=== PATIENT | male | born 1955 | race Caucasian/White ===

== ENCOUNTER 2020-05-15 17:38 | Inpatient (IN) | payer MEDICARE, SELFPAY ==
[~2020-05-15] VITALS: Ht 190.5 cm; Wt 103.8 kg
[2020-05-15] MEDS ORDERED: ASPI325EC PO (20:17)
[2020-05-15] MEDS ORDERED: FAMO20 PO (20:17)
[2020-05-15] MEDS ORDERED: METF500 PO (20:18)
[2020-05-15] MEDS ORDERED: Prinivil10 MG PO (20:18)
[2020-05-15] MEDS ORDERED: GABA800 PO (20:18)
[2020-05-15] MEDS ORDERED: Crestor20 MG PO (20:20)
[2020-05-15] MEDS ORDERED: TRAM50 PO (20:20)
[2020-05-15] MEDS ORDERED: METPRE4 PO (20:20)
[2020-05-15 20:51] LABS: BASOPHILS ABSOLUTE AUTO 0.09 K/mm3 (0.00-0.23); BASOPHILS PERCENT AUTO 1 % (0-2); EOSINOPHILS ABSOLUTE AUTO 0.43 K/mm3 (0.00-0.68); EOSINOPHILS PERCENT AUTO 2 % (0-6); IMMATURE GRAN PERCENT AUTO 1 % (0-1); LYMPHOCYTES ABSOLUTE AUTO 2.31 K/mm3 (0.84-5.20); LYMPHOCYTES PERCENT AUTO 12 % (21-46); MONOCYTES ABSOLUTE AUTO 1.25 K/mm3 (0.16-1.47); MONOCYTES PERCENT AUTO 7 % (4-13); Mean Corpuscular HGB 19.9 pg (26.0-34.0); Mean Corpuscular HGB Conc 28.6 g/dL (31.5-36.5); Mean Corpuscular Volume 70 fL (80-100); Mean Platelet Volume 9.2 fL (9.1-12.4); NEUTROPHILS ABSOLUTE AUTO 14.76 K/mm3 (1.96-9.15); NEUTROPHILS PERCENT AUTO 77 % (41-73); NRBC ABSOLUTE 0.05 K/mm3 (0.00-0.02); NRBC Auto 0.3 /100 WBC (0.0-0.2); Platelet Count 350 K/mm3 (150-400); RDW Coefficient Variation 23.3 % (11.7-14.2); RDW Standard Deviation 56.7 fL (35.1-46.3); Red Blood Cell Count 4.03 M/mm3 (4.30-5.90); White Blood Cell Count 19.04 K/mm3 (4.00-11.30)
[2020-05-15 21:06] LABS: International Normalized Ratio 0.98; Prothrombin Time Results 10.5 Sec (9.7-11.5)
[2020-05-15 21:07] LABS: Alanine Aminotransfer (ALT/SGP 22 U/L (12-78); Albumin, Blood 3.3 g/dL (3.4-5.0); Albumin/Globulin Ratio 0.9 (0.8-1.8); Alk Phos 105 U/L (50-136); Anion Gap 4 mmol/L (6-16); Aspartate Aminotrans (AST/SGOT 14 U/L (12-37); Bilirubin, Total 0.4 mg/dL (0.1-1.0); Blood Urea Nitrogen 16 mg/dL (8-24); Bun/Creatinine Ratio 21.5 (12.0-20.0); CO2, Blood 26 mmol/L (21-32); Calcium, Blood 9.1 mg/dL (8.5-10.1); Chloride, Blood 107 mmol/L (98-108); Creatinine, Blood 0.75 mg/dL (0.60-1.20); Globulin, Blood 3.6 g/dL (2.2-4.0); Glomerular Filtration Rate >60 (60-); Glucose, Blood 105 mg/dL (70-99); Potassium, Blood 3.8 mmol/L (3.5-5.5); Sodium, Blood 137 mmol/L (136-145); Total Protein, Blood 6.9 g/dL (6.4-8.2); Troponin I <0.015 ng/mL (0.000-0.040)
[2020-05-16 04:35] LABS: Hematocrit 28.3 % (37.0-53.0); Hemoglobin 8.1 g/dL (13.5-17.5); Mean Corpuscular HGB Conc 28.6 g/dL (31.5-36.5); Mean Corpuscular Volume 70 fL (80-100); Mean Platelet Volume 9.3 fL (9.1-12.4); NRBC ABSOLUTE 0.03 K/mm3 (0.00-0.02); NRBC Auto 0.2 /100 WBC (0.0-0.2); Platelet Count 329 K/mm3 (150-400); RDW Coefficient Variation 23.3 % (11.7-14.2); RDW Standard Deviation 57.2 fL (35.1-46.3); Red Blood Cell Count 4.05 M/mm3 (4.30-5.90); White Blood Cell Count 14.48 K/mm3 (4.00-11.30)
--- NOTE | 2020-05-16 18:38 | NUR ---
ADMIT PT ARRIVED TO ICU ROOM 11 AT 1720 VIA BED WITH BARREL LEVELER STAFF AT BEDSIDE. PT IS AWAKE, ALERT, AND ORIENTED, BUT DROWSEY AT THIS TIME. PT IS COMPLAINING OF BACK PAIN AND DISCOMFORT IN BED. EDUCATED PT AND SPOUSE ABOUT IMPORTANCE OF REMAINING SUPINE AND NOT BENDING AT THE HIPS. PT CONTINUES TO MOVES LEGS DESPITE INSTRUCTIONS AND EDUCATION OF BLEEDING RISK. PT WITH BILATERAL GROIN FEMORAL ARTERY ACCESS SITE WITH DRESSING C/D/I. NO HEMATOMA OR BRUISING NOTED. PT WITH LEFT RADIAL ACCESS SITE WITH TR BAND IN PLACE. SITE IS SOFT NONTENDER, NO HEMATOMA. IV'S SALINE LOCKED INITIALLY. PT RESTARTED ON HEPARIN GTT AT 17 UNITS/KG/HR PER DR SOLO. PT USED URINAL TO VOID WITH ASSISTANCE. PT BILATERAL FEET ARE DUSKY AND MOTTLED, WITH GANGRENOUS TOES TO RIGHT FOOT. UNABLE TO DOPPLER PULSES TO BLE'S. DR SOLO AWARE. SEE PHOTOS IN CHART OF WOUNDS. PLAN IS FOR DR SOLO TO TAKE PT BACK TO BARREL LEVELER IN THE AM. WILL CONTINUE TO MONITOR AND REPORT OFF TO ONCOMING RN.
--- NOTE | 2020-05-16 19:40 | NUR ---
TR BAND REMOVAL RN REMOVED 2ML FROM TR BAND - PT VSS, NO SIGNS OF BLEEDING/SWELLING. WILL CONTINUE TO MONITOR.
--- NOTE | 2020-05-16 22:48 | NUR ---
PT UPDATE PT HR WAS NOTED TO BE IN 150'S - RN'S TO SEE PT STATUS DURING THIS TIME. PT WAS ATTEMPTING TO GET OUT OF BED TO USE THE RESTROOM. PT FAILED TO CALL FOR HELP OR ASK NURSES FOR HELP THEY WALK BY. PT SEEMED TO BE DISORIENTED. WEAK, AND NONCOMPLIANT. RN'S ASSISTED PT TO ATTEMPT TO USE BEDSIDE COMMODE, BUT PT INCREASINGLY WEAK AND APPEARED IF HE WAS GOING TO FAINT. RN AND TECH ASSISTED PT BACK IN BED - PT VERY LETHARGIC. ALL ACCESS SITES WERE C/D/I, NO SIGNS OF BLEEDING OR SWELLING IN SITES - WILL CONTINUE TO MONITOR CLOSELY. BED ALARM ON, REORIENTED PT. VSS.
[2020-05-17 03:52] LABS: BASOPHILS ABSOLUTE AUTO 0.06 K/mm3 (0.00-0.23); BASOPHILS PERCENT AUTO 0 % (0-2); EOSINOPHILS ABSOLUTE AUTO 0.03 K/mm3 (0.00-0.68); EOSINOPHILS PERCENT AUTO 0 % (0-6); Hematocrit 27.5 % (37.0-53.0); Hemoglobin 7.9 g/dL (13.5-17.5); IMMATURE GRAN ABSOLUTE AUTO 0.13 K/mm3 (0.00-0.10); IMMATURE GRAN PERCENT AUTO 1 % (0-1); LYMPHOCYTES ABSOLUTE AUTO 0.97 K/mm3 (0.84-5.20); LYMPHOCYTES PERCENT AUTO 6 % (21-46); MONOCYTES ABSOLUTE AUTO 1.12 K/mm3 (0.16-1.47); MONOCYTES PERCENT AUTO 6 % (4-13); Mean Corpuscular HGB 19.8 pg (26.0-34.0); Mean Corpuscular HGB Conc 28.7 g/dL (31.5-36.5); Mean Corpuscular Volume 69 fL (80-100); Mean Platelet Volume 9.6 fL (9.1-12.4); NEUTROPHILS ABSOLUTE AUTO 15.31 K/mm3 (1.96-9.15); NEUTROPHILS PERCENT AUTO 87 % (41-73); NRBC ABSOLUTE 0.03 K/mm3 (0.00-0.02); NRBC Auto 0.2 /100 WBC (0.0-0.2); Platelet Count 328 K/mm3 (150-400); RDW Coefficient Variation 22.9 % (11.7-14.2); RDW Standard Deviation 55.1 fL (35.1-46.3); Red Blood Cell Count 3.99 M/mm3 (4.30-5.90); White Blood Cell Count 17.62 K/mm3 (4.00-11.30)
[2020-05-17 04:13] LABS: Alanine Aminotransfer (ALT/SGP 23 U/L (12-78); Albumin, Blood 2.8 g/dL (3.4-5.0); Albumin/Globulin Ratio 0.8 (0.8-1.8); Alk Phos 104 U/L (50-136); Anion Gap 9 mmol/L (6-16); Aspartate Aminotrans (AST/SGOT 35 U/L (12-37); Bilirubin, Total 0.7 mg/dL (0.1-1.0); Blood Urea Nitrogen 12 mg/dL (8-24); Bun/Creatinine Ratio 17.3 (12.0-20.0); CO2, Blood 25 mmol/L (21-32); Calcium, Blood 8.7 mg/dL (8.5-10.1); Chloride, Blood 105 mmol/L (98-108); Creatinine, Blood 0.69 mg/dL (0.60-1.20); Globulin, Blood 3.4 g/dL (2.2-4.0); Glomerular Filtration Rate >60 (60-); Glucose, Blood 127 mg/dL (70-99); Magnesium, Blood 1.7 mg/dL (1.6-2.4); Sodium, Blood 139 mmol/L (136-145); Total Protein, Blood 6.2 g/dL (6.4-8.2)
--- NOTE | 2020-05-17 05:30 | NUR ---
SHIFT SUMMARY PT RESTED THROUGH MOST OF NIGHT. ALERT AND ORIENTED - ABLE TO MAKE NEEDS KNOWN. PT LETHARGIC BUT EASILY AROUSABLE. SEE PREVIOUS NOTES. SATS >90% ON RA. TELE NSR/SINUS TACH. PT GLASER - SHANNON CARE PERFORMED, DRAINING TO GRAVITY. PT HAD ONE LARGE INCONTINENT BM. NO SIGNS OF BLEEDING. HEP GTT CONTINUES TO RUN AT SAME RATE OF 17U/KG/HR. BILAT GROIN SITES AND L RADIAL SITE ARE C/D/I, NO SIGNS OF SWELLING OR BLEEDING. VSS - BP AND HR HAVE BEEN UP AND DOWN. WILL CONTINUE TO MONITOR. CALL LIGHT WIHTIN REACH, BED IN LOWEST POSITION. BED ALARM ON. WILL CONTINUE TO MONITOR.
--- NOTE | 2020-05-17 08:02 | NUR ---
AM NOTE PT RESTING IN BED, RESPONDING TO VERBAL STIMULI. PT ORIENTED x4; KNOW MONTH/YEAR/PRESIDENT; UNSURE IF DAY/DATE. PT CALM AND COOPERATIVE WITH CARE. PT STATES HE WANTS TO GO HOME. PT DENIES PAIN, CHEST PAIN, SOB, DIZZINESS AND NAUSEA. RESTING IN BED. LS DIM T/O SPO2 >90% ON RA. RESP EVEN AND UNLABORED. ST WITH PAC'S PER STRIP. PT ABD SOFT,NONTENDER, MOLD DISTENTION. BS NORMOACTIVE x4 QUAD. RIGTH GROIN SITE HAS SMALL AMOUNT OF BLOOD NOTED, NO BRUISING OR BLEEDING NOTED. LEFT GROIN SITE DRESS C/D/I; SHADOWING/BRUISNG NOTED. WOUNDS TO RIGHT FOOT NOTED, GREEN IN COLORATION; OPEN TO AIR. UNABLE TO FIND PULSES. VSS. NO OTHER ACUTE CHANGES. WILL CONTINUE TO MONITOR.
--- NOTE | 2020-05-17 11:24 | NUR ---
SPOKE WITH DR SOLO, PLANS FOR ADDITIONAL REVASC TODAT 05/17/20; WILL CONTINUE TO HOLD PT NPO. NOTIFIED DR DUDLEY; PLANS TO SEE PATIEINT TOMORROW 05/18/20 ONCE REVASC IS COMPLETED. WILL CONTINUE TO MONITOR.
--- NOTE | 2020-05-17 15:45 | NUR ---
PT TAKEN TO DENTAL SURGERY DOCTOR.
--- NOTE | 2020-05-17 17:57 | NUR ---
PT BACK TO ROOM AT 1741; RESPONDING TO VERBAL STIMULI, QUICKLY FALLING BACK TO SLEEP. MEPTUNE DRESSING NOTED TO RIGHT INNER ANKLE; SMALL AMOUNT OF BLEEDING MARKED. RETARTING HEPARIN. DEV CONTINUE TO MONITOR.
--- NOTE | 2020-05-17 18:11 | NUR ---
SHIFT SUMMARY NO ACUTE CHANGES FROM PREVIOUS NOTED. VSS. WILL CONTINUE TO MONITOR UNITL REPORT GIVEN TO ONCOMING RN.
--- NOTE | 2020-05-18 00:19 | NUR ---
DUE TO MEDITECH DOWNTIME - SEE CRITICAL CARE TRIFTYLER
[2020-05-18 05:14] LABS: BASOPHILS ABSOLUTE AUTO 0.05 K/mm3 (0.00-0.23); BASOPHILS PERCENT AUTO 0 % (0-2); EOSINOPHILS ABSOLUTE AUTO 0.25 K/mm3 (0.00-0.68); EOSINOPHILS PERCENT AUTO 2 % (0-6); Hematocrit 24.9 % (37.0-53.0); IMMATURE GRAN ABSOLUTE AUTO 0.08 K/mm3 (0.00-0.10); IMMATURE GRAN PERCENT AUTO 1 % (0-1); LYMPHOCYTES PERCENT AUTO 10 % (21-46); MONOCYTES ABSOLUTE AUTO 0.95 K/mm3 (0.16-1.47); MONOCYTES PERCENT AUTO 7 % (4-13); Mean Corpuscular HGB 19.7 pg (26.0-34.0); Mean Corpuscular HGB Conc 28.1 g/dL (31.5-36.5); Mean Corpuscular Volume 70 fL (80-100); Mean Platelet Volume 10.2 fL (9.1-12.4); NEUTROPHILS ABSOLUTE AUTO 11.89 K/mm3 (1.96-9.15); NEUTROPHILS PERCENT AUTO 81 % (41-73); Platelet Count 283 K/mm3 (150-400); RDW Standard Deviation 55.8 fL (35.1-46.3); Red Blood Cell Count 3.56 M/mm3 (4.30-5.90); White Blood Cell Count 14.62 K/mm3 (4.00-11.30)
[2020-05-18 05:40] LABS: Alanine Aminotransfer (ALT/SGP 20 U/L (12-78); Albumin, Blood 2.3 g/dL (3.4-5.0); Albumin/Globulin Ratio 0.7 (0.8-1.8); Alk Phos 89 U/L (50-136); Anion Gap 8 mmol/L (6-16); Aspartate Aminotrans (AST/SGOT 36 U/L (12-37); Bilirubin, Total 0.7 mg/dL (0.1-1.0); Blood Urea Nitrogen 13 mg/dL (8-24); Bun/Creatinine Ratio 18.5 (12.0-20.0); CO2, Blood 25 mmol/L (21-32); Calcium, Blood 8.4 mg/dL (8.5-10.1); Chloride, Blood 104 mmol/L (98-108); Globulin, Blood 3.5 g/dL (2.2-4.0); Glomerular Filtration Rate >60 (60-); Glucose, Blood 92 mg/dL (70-99); Magnesium, Blood 1.8 mg/dL (1.6-2.4); Phosphorus, Blood 2.8 mg/dL (2.5-4.9); Potassium, Blood 3.9 mmol/L (3.5-5.5); Sodium, Blood 137 mmol/L (136-145); Total Protein, Blood 5.8 g/dL (6.4-8.2)
[2020-05-18 05:41] LABS: C-REACTIVE PROTEIN, EXT RANGE >19.000 mg/dL (0.000-0.300)
--- NOTE | 2020-05-18 05:44 | NUR ---
SHIFT SUMMARY PT RESTED WELL THROUGH THE NIGHT. ALERT AND ORIENTED - ABLE TO MAKE NEEDS KNOWN. ROOM AIR - SATS >90%. TELE NSR/SINUS TACH. GLASER IN PLACE - DRAINING TO GRAVITY, SHANNON CARE PERFORMED. NO BM. PT READY TO GO HOME WHEN ABLE. PAIN X1. ALL SITES LOOK C/D/I. NO SIGNS OF OBVIOUS BLEEDING/SWELLING. CALL LIGHT WITHIN REACH, BED IN LOWEST POSITIN. WILL CONTINUE TO MONITOR.
[2020-05-18 08:24] LABS: Hematocrit 26.1 % (37.0-53.0); Hemoglobin 7.5 g/dL (13.5-17.5); Mean Corpuscular HGB 19.8 pg (26.0-34.0); Mean Corpuscular HGB Conc 28.7 g/dL (31.5-36.5); Mean Corpuscular Volume 69 fL (80-100); Mean Platelet Volume 9.5 fL (9.1-12.4); NRBC ABSOLUTE 0.02 K/mm3 (0.00-0.02); NRBC Auto 0.1 /100 WBC (0.0-0.2); Platelet Count 288 K/mm3 (150-400); RDW Coefficient Variation 22.9 % (11.7-14.2); RDW Standard Deviation 55.2 fL (35.1-46.3); Red Blood Cell Count 3.79 M/mm3 (4.30-5.90); White Blood Cell Count 15.93 K/mm3 (4.00-11.30)
[2020-05-18] MEDS ORDERED: ACET325 PO (13:34)
[2020-05-18] MEDS ORDERED: ASCO500 PO (13:34)
[2020-05-18] MEDS ORDERED: CEPH500 PO (13:35)
[2020-05-18] MEDS ORDERED: FERSU300 PO (13:35)
[2020-05-18] MEDS ORDERED: HUMALOG KW100 UNIT/1 SC (13:36)
[2020-05-18] MEDS ORDERED: ONDA4ODT MM (13:36)
[2020-05-18] MEDS ORDERED: Nicoderm Cq1 EAC1 TOP (13:36)
[2020-05-18] MEDS ORDERED: XARELTO20 MG PO (13:37)
[2020-05-18] MEDS ORDERED: ACIDOPHILUS1 EAC1 PO (13:37)
[2020-05-18] MEDS ORDERED: CLOP75 PO (14:48)
--- NOTE | 2020-05-18 15:34 | NUR ---
DISCHARGE INSTRUCTIONS GONE OVER WITH PT AND SPOUSE. INSTRUCTED ON NEW MEDICATIONS AND SAFETY MONITORING. ALL QUESTIONS ANSWERED. INSTRUCTED PT AND FAMILY ON FOLLOW UP VISITS. BELONGINGS GATHERED AND GIVEN TO PT. PT WAS ESCORTED OUT BY RN VIA WHEELCHAIR TO AWAITING RIDE.
== END 2020-05-18 14:55 | disposition home or self-care (01) | DRG 854 ==
LOC: ER 17:38 → ICUW 21:24 → ERHOLD 21:24 → ICUW 05-16 15:50
PROVIDERS: Emergency Medicine; Family Medicine; ADMIT Internal Medicine
PROC: B41D1ZZ Fluoroscopy of Aorta and Bilateral Lower Extremity Arteries using Low Osmolar Contrast (ICD-10-PCS; principal; 2020-05-16)
PROC: 047 Lower Arteries, Dilation (ICD-10-PCS; 2020-05-16)
PROC: 04FC3ZZ Fragmentation of Right Common Iliac Artery, Percutaneous Approach (ICD-10-PCS; 2020-05-16)
PROC: 04FH3ZZ Fragmentation of Right External Iliac Artery, Percutaneous Approach (ICD-10-PCS; 2020-05-16)
PROC: 03F Upper Arteries, Fragmentation (ICD-10-PCS; 2020-05-16)
PROC: 027W3DZ Dilation of Thoracic Aorta, Descending with Intraluminal Device, Percutaneous Approach (ICD-10-PCS; 2020-05-16)
DX: A41.9 Sepsis, unspecified organism (principal); E11.52 Type 2 diabetes mellitus with diabetic peripheral angiopathy with gangrene; D62 Acute posthemorrhagic anemia; L97.515 Non-pressure chronic ulcer of other part of right foot with muscle involvement without evidence of necrosis; L97.415 Non-pressure chronic ulcer of right heel and midfoot with muscle involvement without evidence of necrosis; M86.9 Osteomyelitis, unspecified; E11.42 Type 2 diabetes mellitus with diabetic polyneuropathy; G35 Multiple sclerosis; E78.5 Hyperlipidemia, unspecified; I10 Essential (primary) hypertension; F17.210 Nicotine dependence, cigarettes, uncomplicated; Z79.82 Long term (current) use of aspirin; M35.3 Polymyalgia rheumatica; D64.9 Anemia, unspecified; Z79.84 Long term (current) use of oral hypoglycemic drugs; D50.9 Iron deficiency anemia, unspecified; E11.621 Type 2 diabetes mellitus with foot ulcer
CPT/HCPCS: 36140; 36415; 36430; 71045; 73630; 75625; 75716; 76937; 80053; 82947; 83036; 83605; 83735; 84100; 84484; 85025; 85027; 85347; 85610; 85651; 85730; 86140; 86850; 86900; 86901; 86923; 87040; 93005; 93010; 93926; 96365; 96375; 96376; 99152; 99153; 99285-25; A9270; C1714; C1725; C1757; C1769; C1874; C1876; C1887; C1894; C2623; C9765; G0008; J0360; J0690; J1644; J2060; J2250; J2704; J3010; J7030; J7040; J7050; J7509; P9016; Q2038; Q9967

== ENCOUNTER 2020-05-30 10:49 | Inpatient (IN) | payer MEDICARE, SELFPAY, OTHER ==
[~2020-05-30] VITALS: Ht 190.5 cm; Wt 97.8 kg
[~2020-05-30 10:49] MED LIST: ACET325 PO; ACIDOPHILUS1 EAC1 PO; ASCO500 PO; ASPI325EC PO; CEPH500 PO; CLOP75 PO; Crestor20 MG PO; FAMO20 PO; FERSU300 PO; GABA800 PO; HUMALOG KW100 UNIT/1 SC; METF500 PO; METPRE4 PO; Nicoderm Cq1 EAC1 TOP; ONDA4ODT MM; Prinivil10 MG PO; TRAM50 PO; XARELTO20 MG PO
[2020-05-30] MEDS ORDERED: NORCO 7.5-3251 EAC1 PO (11:37)
[2020-05-30 12:07] LABS: BASOPHILS ABSOLUTE AUTO 0.04 K/mm3 (0.00-0.23); BASOPHILS PERCENT AUTO 0 % (0-2); EOSINOPHILS ABSOLUTE AUTO 0.02 K/mm3 (0.00-0.68); EOSINOPHILS PERCENT AUTO 0 % (0-6); Hematocrit 21.5 % (37.0-53.0); Hemoglobin 6.3 g/dL (13.5-17.5); IMMATURE GRAN ABSOLUTE AUTO 0.97 K/mm3 (0.00-0.10); IMMATURE GRAN PERCENT AUTO 4 % (0-1); LYMPHOCYTES ABSOLUTE AUTO 0.71 K/mm3 (0.84-5.20); LYMPHOCYTES PERCENT AUTO 3 % (21-46); MONOCYTES ABSOLUTE AUTO 0.96 K/mm3 (0.16-1.47); MONOCYTES PERCENT AUTO 4 % (4-13); Mean Corpuscular HGB 21.1 pg (26.0-34.0); Mean Corpuscular HGB Conc 29.3 g/dL (31.5-36.5); Mean Corpuscular Volume 72 fL (80-100); NEUTROPHILS ABSOLUTE AUTO 19.87 K/mm3 (1.96-9.15); NEUTROPHILS PERCENT AUTO 88 % (41-73); NRBC Auto 0.4 /100 WBC (0.0-0.2); Platelet Count 518 K/mm3 (150-400); RDW Coefficient Variation 24.5 % (11.7-14.2); Red Blood Cell Count 2.99 M/mm3 (4.30-5.90); White Blood Cell Count 22.57 K/mm3 (4.00-11.30)
[2020-05-30 12:15] LABS: International Normalized Ratio 1.15; Prothrombin Time Results 12.2 Sec (9.7-11.5)
[2020-05-30 12:23] LABS: Albumin, Blood 2.1 g/dL (3.4-5.0); Albumin/Globulin Ratio 0.5 (0.8-1.8); Bilirubin, Total 0.4 mg/dL (0.1-1.0); Bun/Creatinine Ratio 11.8 (12.0-20.0); Calcium, Blood 8.8 mg/dL (8.5-10.1); Creatinine, Blood 1.53 mg/dL (0.60-1.20); Globulin, Blood 3.9 g/dL (2.2-4.0); Potassium, Blood 4.5 mmol/L (3.5-5.5)
[2020-05-30 13:07] LABS: Influenza A, PCR NEGATIVE (NEGATIVE); Influenza B, PCR NEGATIVE (NEGATIVE); Resp Syncytial Virus, PCR NEGATIVE (NEGATIVE); SARS-Cov-2 (COVID-19) PCR, MMC NEGATIVE (NEGATIVE)
[2020-05-30] MEDS ORDERED: Florastor250 MG PO (15:34)
--- NOTE | 2020-05-30 17:49 | NUR ---
Advanced Directive completed for pt. is on board with pt's choices. If no hope for meaningful recovery, pt wants no heroic measures. AD notarized by me and several copies made. One placed in pt's chart. is tearful, but responded well to gentle patient financial counselor and encouragement. Pt says he's tired of hurting. I will remain available.
--- NOTE | 2020-05-30 18:24 | NUR ---
PT ARRIVED ON UNIT AT 1505... PT'S VS STABLE UPON ARRIVAL. PT WAS PULLED OVER TO THE BED WITH A SLIDER SHEET. PT'S RIGHT FOOT HAS MULTIPLE WOUNDS THAT HAVE A VERY FOUL ODOR, THE WOUNDS WERE CLEANED AND PICTURES IN THE THE CHART. DR. HOANG WAS CONSULTED FOR PODIATRY. THE ONLY PULSE ABLE TO BE FOUND WITH DOPPLER ON THE RIGHT LEG WAS THE POSTERIOR TIBIAL. PULSES WERE ABSENT TO THE LEFT LEG. PT'S LEFT LEG IS COOL TO THE TOUCH, PER THE PT HE IS UNABLE TO MOVE IT ON HIS OWN. PT DENIES PAIN TO HIS BLE AT THIS TIME. PT HAS 1 UNIT OF PRBCs RUNNING UPON ARRIVAL AND AN ORDER TO HANG ONE MORE FOR A TOTAL OF 2 UNITS. PT IS A&Ox4 AT THIS TIME. PT IS IN NSR, BP STABLE. PT IS ON 2L NC TO KEEP O2 SATS >90%, PT IS ON RA AT HOME PER PT AND HIS . BT PRESENT AND HYPOACTIVE. PT C/O OF N/V DUE TO THE "SMELL OF MY FOOT." DR. HOANG AT THE BEDSIDE, INFORMED THE PT THAT HE WILL NEED TO HAVE A BKA D/T POSSIBLE GAS GANEGRENE IN THE RIGHT FOOT. PT AND ARE VERY UPSET AT THIS NEWS. ASKED FOR AT STAT CONSULT WITH ORTHO'S DR. MCKINNEY. THIS WAS CALLED TO HIS ANSWERING SERVICE. PT IS ALSO TO BE TAKEN TO THE GEOPHYSICAL PROSPECTOR TOMORROW WITH DR. SOLO FOR THE ACUTE LEFT LEG ISCHEMIA. PT HAS ALSO HAD A POSITIVE GUIAC, DR. BLACK WAS CONSULTED, THIS RN CALLED DR. BLACK, HE OKAY'D THE PT TO BE ON A CLEAR LIQUID DIET. WILL CONTINUE TO MONITOR.
[2020-05-30 19:21] LABS: BASOPHILS ABSOLUTE AUTO 0.03 K/mm3 (0.00-0.23); BASOPHILS PERCENT AUTO 0 % (0-2); EOSINOPHILS ABSOLUTE AUTO 0.01 K/mm3 (0.00-0.68); EOSINOPHILS PERCENT AUTO 0 % (0-6); Hematocrit 22.5 % (37.0-53.0); IMMATURE GRAN ABSOLUTE AUTO 0.43 K/mm3 (0.00-0.10); IMMATURE GRAN PERCENT AUTO 2 % (0-1); LYMPHOCYTES ABSOLUTE AUTO 1.12 K/mm3 (0.84-5.20); LYMPHOCYTES PERCENT AUTO 6 % (21-46); MONOCYTES ABSOLUTE AUTO 1.15 K/mm3 (0.16-1.47); MONOCYTES PERCENT AUTO 6 % (4-13); Mean Corpuscular HGB 22.9 pg (26.0-34.0); Mean Corpuscular HGB Conc 31.1 g/dL (31.5-36.5); Mean Corpuscular Volume 74 fL (80-100); Mean Platelet Volume 8.8 fL (9.1-12.4); NEUTROPHILS ABSOLUTE AUTO 17.61 K/mm3 (1.96-9.15); NEUTROPHILS PERCENT AUTO 87 % (41-73); NRBC ABSOLUTE 0.08 K/mm3 (0.00-0.02); NRBC Auto 0.4 /100 WBC (0.0-0.2); Platelet Count 416 K/mm3 (150-400); RDW Coefficient Variation 25.5 % (11.7-14.2); RDW Standard Deviation 65.9 fL (35.1-46.3); Red Blood Cell Count 3.06 M/mm3 (4.30-5.90); White Blood Cell Count 20.35 K/mm3 (4.00-11.30)
--- NOTE | 2020-05-30 20:00 | NUR ---
ASSUMED CARE OF PT AT 1915. REPORT RECEIVED AT BEDSIDE. DR LAGOS IN ROOM REQUESTED STAT CT OF RIGHT LEG. PT TO CT AND RETURNED. NOTIFIED DR LAGOS THAT CT WAS COMPLETED. PT BACK IN ROOM. ALERT AND ORIENTED. ANXIOUS ABOUT POSSIBLE SURGERY FOR RIGHT LOWER EXTREMITY. PT ON PROTONIX DRIP SECONDARY TO ANEMIA WITH POSITIVE GUIAC. OF NOTE: PT DOES TAKE IRON AT HOME. PT HAS RECEIVED TWO UNITS PRBC'S INITIATED IN ER. CBC DRAWN FROM POWERGLIDE, AND SENT TO LAB. WILL REVIEW CHART AND PLAN OF CARE FOR THIS PT.
[2020-05-30 21:24] LABS: Hematocrit 22.5 % (37.0-53.0); Hemoglobin 7.1 g/dL (13.5-17.5)
--- NOTE | 2020-05-30 23:11 | NUR ---
PT RECEIVING LACTATED RINGER BOLUS PER SARAI, HOSPITALIST FOR LOWER BLOOD PRESSURES. WAS TO DO FOLLOW UP H/H AT MIDNIGHT IN REFERENCE TO PT RECEIVING BLOOD PRODUCTS. OR TEAM HAS ARRIVED TO ROOM, AND DR LAGOS COMES TO SPEAK WITH PT ABOUT AMPUTATION OF RIGHT LOWER LEG. PROPOSED BKA. PT NEEDS REASSURANCE. PT VOICES CONCERN THAT HE IS TO RECEIVE MORE BLOOD PRODUCTS IN OR FOR GI BLEED. DISCUSSED WITH PT WHERE HIS H/H IS CURRENTLY. PT LEAVES ICU TO OR WITH OR TEAM. WILL AWAIT PT'S RETURN.
--- NOTE | 2020-05-30 23:44 | NUR ---
05/30/20 3887 Anjelica Ramon PT RECIEVED 2 UNITS OF PRBC IN THE OR VIA BLOOD WARMER. BLOOD VERIFIED BY MYSELF AND . VS MONITORED BY DR. CHAMPION.
--- NOTE | 2020-05-31 01:30 | NUR ---
PT RETURNS TO ROOM POST RIGHT BKA. DR LAGOS TO ROOM. LILLIAN DRAIN TO RIGHT BKA WITH SEROUSAINGEOUR DRAINAGE. STUMP SOCK OVER BKA SITE. PT STATES THAT HE IS HAVING QUITE A BIT OF POST OP PAIN. WILL MEDICATE PER PRN EMAR.
[2020-05-31 06:04] LABS: Hematocrit 24.1 % (37.0-53.0); Hemoglobin 7.6 g/dL (13.5-17.5); Mean Corpuscular HGB 23.9 pg (26.0-34.0); Mean Corpuscular HGB Conc 31.5 g/dL (31.5-36.5); Mean Corpuscular Volume 76 fL (80-100); Mean Platelet Volume 9.2 fL (9.1-12.4); NRBC ABSOLUTE 0.11 K/mm3 (0.00-0.02); NRBC Auto 0.8 /100 WBC (0.0-0.2); Platelet Count 376 K/mm3 (150-400); RDW Coefficient Variation 24.5 % (11.7-14.2); RDW Standard Deviation 66.9 fL (35.1-46.3); Red Blood Cell Count 3.18 M/mm3 (4.30-5.90); White Blood Cell Count 14.51 K/mm3 (4.00-11.30)
[2020-05-31 06:22] LABS: Anion Gap 8 mmol/L (6-16); Blood Urea Nitrogen 13 mg/dL (8-24); Bun/Creatinine Ratio 11.9 (12.0-20.0); CO2, Blood 27 mmol/L (21-32); Calcium, Blood 8.2 mg/dL (8.5-10.1); Chloride, Blood 101 mmol/L (98-108); Creatinine, Blood 1.09 mg/dL (0.60-1.20); Glomerular Filtration Rate >60 (60-); Glucose, Blood 108 mg/dL (70-99); Potassium, Blood 3.6 mmol/L (3.5-5.5); Sodium, Blood 136 mmol/L (136-145)
--- NOTE | 2020-05-31 06:30 | NUR ---
PT HAS BEEN MEDICATED WITH DILAUDID 1 MG SEE PRN EMAR FOR DOSAGING. SPOKE WITH DR IZQUIERDO THIS AM AND RECEIVED ORDER FOR FENTANYL FOR BREAKTHROUGH PAIN. FIRST DOSE OF 50 MCG FENTANYL GIVEN. PENDING RESULTS. WILL CONTINUE TO MONITOR PT, AND WILL REPORT OFF TO ONCOMING RN.
--- NOTE | 2020-05-31 08:26 | NUR ---
AM NOTE... ASSUMED CARE OF PT AT 0715. PT IS A&Ox4 AND IS S/P RIGHT BKA, PT IS HAVING 10/10 SHARP STABBING PAIN TO THE SURGICAL SITE. PT IS ALSO C/O OF TOTAL NUMBNESS TO HIS LEFT LEG. NO PULSES WERE FOUND USING DOPPLER TO THE LEFT LEG. THE PT'S LEFT LEG IS BEING FLOATED ON PILLOWS TO KEEP THE HEEL OFF OF THE BED, MEPILEX DRESSING INTACT TO THE LEFT HEEL AND LEFT POSTERIOR CALF. THE PT'S RIGHT BKA DRESSING IS C/D/I WITH A LILLIAN DRAIN. LILLIAN DRAIN HAS A LARGE CLOT IN THE BULB, THIS WAS CHANGED OUT FOR A NEW ONE. PT'S VS STABLE BUT ON THE SOFT SIDE WITH SYSTOLICS IN THE 80'S-110'S, PT STATES HE NORMALLY IS HYPERTENSIVE AT HOME. PT IS IN SR W/OCC PACs IN THE 70'S. HE IS ON 2L NC TO KEEP HIS O2 SATS>90%. L/S CLEAR T/O DIM IN THE BASES. BT PRESENT BUT VERY HYPOACTIVE, ABD IS SOFT BUT TENDER TO PALP. PT HAS PROTONIX GTT RUNNING PER ORDERS. PT IS NPO FOR PROCEDURE WITH DR. SOLO TODAY. CALL LIGHT IN REACH WILL CONTINUE TO MONITOR.
--- NOTE | 2020-05-31 11:30 | NUR ---
PT UPDATE... DR. KIRAN AT THE BEDSIDE FOR ASSESSMENT. PT IS SUPPOSED TO GO TO THE DRY GOODS INSPECTOR WITH DR. SOLO AT SOME POINT TODAY, CONCERNS OF USING ANTICOAGULANTS WITH THE PT'S POSSIBLE GI BLEED WERE BROUGHT UP. DR. VELEZ WAS CALLED AND NOTIFIED OF PT GOING TO THE DRY GOODS INSPECTOR, HE VERBALIZED HIS UNDERSTANDING AND SAID THAT HE PLANNED ON DOING AN EGD WITH THE PT LATER THIS EVENING IF POSSIBLE. DR. SOLO WAS CALLED AND UPDATED ON THE GI PROVIDER'S PLAN WITH THIS PT, VERBALIZED HIS UNDERSTANDING THAT THE PT HAS A POSSIBLE GI BLEED AND STATED THAT HE WAS NOT CONCERNED WITH THE "SMALL AMOUNT OF HEPARIN" THAT WOULD BE USED DURING THE PROCEDURE. WILL CONTINUE TO MONITOR.
--- NOTE | 2020-05-31 16:39 | NUR ---
History, Chart, Medications and Allergies reviewed before start of procedure.Lungs clear T/O to Auscultation. Patient confirms NPO status and agrees with scheduled surgery. PT REPORT FROM SABA MCKEON RN. TRANSFERRED PT FROM ICU A PCU STATUS PT TO [facility] FOR EGD. DR ARREDONDO SPOKE TO Delta REGARDING NEED FOR ANESTHESIA. HE SAID AFTER REVIEWING CHART NURSE SEDATION WAS ADEQUATE. DR ARREOLA IN [place]. AT BEDSIDE.
--- NOTE | 2020-05-31 16:41 | NUR ---
PT UPDATE... PT LEFT FOR DAY SURGERY AT 1630 FOR HIS EGD. PT'S VS STABLE AT THE TIME OF DEPARTURE.
[2020-05-31 16:51] LABS: BASOPHILS ABSOLUTE AUTO 0.03 K/mm3 (0.00-0.23); BASOPHILS PERCENT AUTO 0 % (0-2); EOSINOPHILS ABSOLUTE AUTO 0.04 K/mm3 (0.00-0.68); EOSINOPHILS PERCENT AUTO 0 % (0-6); Hematocrit 23.9 % (37.0-53.0); Hemoglobin 7.5 g/dL (13.5-17.5); IMMATURE GRAN ABSOLUTE AUTO 0.33 K/mm3 (0.00-0.10); IMMATURE GRAN PERCENT AUTO 2 % (0-1); LYMPHOCYTES ABSOLUTE AUTO 1.14 K/mm3 (0.84-5.20); LYMPHOCYTES PERCENT AUTO 8 % (21-46); MONOCYTES ABSOLUTE AUTO 0.78 K/mm3 (0.16-1.47); MONOCYTES PERCENT AUTO 6 % (4-13); Mean Corpuscular HGB Conc 31.4 g/dL (31.5-36.5); Mean Corpuscular Volume 77 fL (80-100); Mean Platelet Volume 9.1 fL (9.1-12.4); NEUTROPHILS ABSOLUTE AUTO 11.65 K/mm3 (1.96-9.15); NEUTROPHILS PERCENT AUTO 83 % (41-73); NRBC ABSOLUTE 0.05 K/mm3 (0.00-0.02); NRBC Auto 0.4 /100 WBC (0.0-0.2); Platelet Count 363 K/mm3 (150-400); RDW Coefficient Variation 24.9 % (11.7-14.2); RDW Standard Deviation 67.7 fL (35.1-46.3); Red Blood Cell Count 3.12 M/mm3 (4.30-5.90); White Blood Cell Count 13.97 K/mm3 (4.00-11.30)
--- NOTE | 2020-05-31 17:10 | NUR ---
05/31/20 1710 Merari Steiner History, Chart, Medications and Allergies reviewed before start of procedure. Patient confirms NPO status and agrees with scheduled surgery. PATIENT DETERMINED TO BE ASA APPROPRIATE FOR PROPOFOL SEDATION PRIOR TO START OF PROCEDURE BY . 3-LEAD EKG REVIEWED WITH PHYSICIAN PRIOR TO START OF PROCEDURE. MONITOR INTACT WITH CONTINUOUS PULSE OXIMETRY AND INTERMITTENT BP.Bite Block Placed
--- NOTE | 2020-05-31 18:10 | NUR ---
Spiritual care note: I met with Dante this morning. He was very upset about this hospitalization from begining. He feels betrayed by the PA who "gave us hope" the day before admission. He says he doesn't understand "what happened." He complained about proceedure being scheduled/canceled/rescheduled today. He is also winter upset about his amputation and admits he is worred about his other leg. He appeared close to tears, but pulled himself back. I provided emotional affirmation and theraputic listening to good effect. Much of what he stated was appropriate and reasonable. He will benefit from continued aids counselor and clear communication from clinicians. I will remain available.
--- NOTE | 2020-05-31 18:40 | NUR ---
SHIFT SUMMARY... PT RETURNED FROM DAY SURGERY S/P EDG AT 1740, PT'S EDG WAS CLEAR PER DR. VELEZ. A CONSULT WAS PLACED FOR DR. MCLEOD ENT FOR OROPHARNYX BLEEDING. PT'S VS ON RETURN WERE STABLE, PT IS C/O OF 10/10 PAIN D/T THE MOVEMENT OF GOING TO DAY SURGERY. PT WAS MEDICATED FOR PAIN PER EMAR. PT'S AT THE BEDSIDE UPDATED ON NEXT STEP AND PLAN OF CARE, PT IS TO BE NPO AFTER MIDNIGHT FOR HIS FINISH CLEANER PROCEDURE TO THE LEFT LEG. PT HAS LR RUNNING AT 150MLS/HR PER ORDERS. LILLIAN DRAIN HAS MINIMAL DRAINAGE AT THIS TIME, BULB IS COMPRESSED, NO CLOTS NOTED IN THE TUBING. SURGICAL DRESSING IS C/D/I. CALL LIGHT IN REACH WILL CONTINUE TO MONITOR UNTIL REPORT IS GIVEN TO ONCOMING RN
--- NOTE | 2020-05-31 20:00 | NUR ---
ASSUMED CARE OF PT AT 1915. REPORT RECEIVED. PT PRESENTS IN BED. ALERT AND SOMEWHAT ORIENTED. DRESSING ON RIGHT BKA SITE CDI. STUMP ELEVATED ON PILLOW. PT MADE AWARE THAT DIESEL PILE HAMMER OPERATOR HAS BEEN ORDERED AND WOULD BE BROUGHT IN ROOM ONCE AVAILABLE FROM PHARMACY. PT ABLE TO MOVE ABOUT IN BED ON HIS OWN. VOIDS Q.S. WILL REVIEW CHART AND PLAN OF CARE FOR THIS PT.
[2020-06-01 05:25] LABS: BASOPHILS ABSOLUTE AUTO 0.03 K/mm3 (0.00-0.23); BASOPHILS PERCENT AUTO 0 % (0-2); EOSINOPHILS PERCENT AUTO 0 % (0-6); Hematocrit 23.4 % (37.0-53.0); Hemoglobin 7.2 g/dL (13.5-17.5); IMMATURE GRAN ABSOLUTE AUTO 0.26 K/mm3 (0.00-0.10); IMMATURE GRAN PERCENT AUTO 2 % (0-1); LYMPHOCYTES ABSOLUTE AUTO 1.05 K/mm3 (0.84-5.20); LYMPHOCYTES PERCENT AUTO 8 % (21-46); MONOCYTES ABSOLUTE AUTO 0.77 K/mm3 (0.16-1.47); MONOCYTES PERCENT AUTO 6 % (4-13); Mean Corpuscular HGB 23.9 pg (26.0-34.0); Mean Corpuscular HGB Conc 30.8 g/dL (31.5-36.5); Mean Corpuscular Volume 78 fL (80-100); Mean Platelet Volume 8.7 fL (9.1-12.4); NEUTROPHILS ABSOLUTE AUTO 11.33 K/mm3 (1.96-9.15); NEUTROPHILS PERCENT AUTO 84 % (41-73); NRBC ABSOLUTE 0.02 K/mm3 (0.00-0.02); NRBC Auto 0.1 /100 WBC (0.0-0.2); Platelet Count 360 K/mm3 (150-400); RDW Coefficient Variation 25.5 % (11.7-14.2); RDW Standard Deviation 70.3 fL (35.1-46.3); Red Blood Cell Count 3.01 M/mm3 (4.30-5.90); White Blood Cell Count 13.44 K/mm3 (4.00-11.30)
[2020-06-01 05:46] LABS: Anion Gap 7 mmol/L (6-16); Blood Urea Nitrogen 6 mg/dL (8-24); Bun/Creatinine Ratio 7.4 (12.0-20.0); CO2, Blood 28 mmol/L (21-32); Calcium, Blood 8.2 mg/dL (8.5-10.1); Chloride, Blood 100 mmol/L (98-108); Creatinine, Blood 0.81 mg/dL (0.60-1.20); Glomerular Filtration Rate >60 (60-); Glucose, Blood 100 mg/dL (70-99); Potassium, Blood 3.2 mmol/L (3.5-5.5); Sodium, Blood 135 mmol/L (136-145)
--- NOTE | 2020-06-01 06:26 | NUR ---
PT HAS STATED BETTER RELIEF WITH AIR DRIER MACHINE OPERATOR. PT DOES DEMONSTRATE THAT HE IS FORGETFUL AND NEEDS REMINDERS AND CUES AT TIMES. PT HAS NO S/S BLEEDING. NO COMPLAINTS OF N/V. VSS. HAVE USED 1-2 LITERS OXYGEN PER NASAL CANNULA DURING NIGHT. NO S/S ADVERSE REACTIONS TO ANTIBIOTIC THERAPY. WILL CONTINUE TO MONITOR PT, AND WILL REPORT OFF TO ONCOMING RN.
[2020-06-01 18:22] LABS: Hematocrit 24.6 % (37.0-53.0); Hemoglobin 7.5 g/dL (13.5-17.5)
--- NOTE | 2020-06-01 18:38 | NUR ---
SHIFT SUMMARY: PT TO AND FROM DESIGN ENGINEER THIS AFTERNOON FOR ATTEMPT OF REVASCULARIZATION. PT FOUND TO BE OCCLUDED AND REVASC WAS UNSUCCESSFUL. PT RETURNS TO ROOM WITH BILATERAL GROIN ACCESS SITES AND RT RADIAL SITE. SITES WNL AT THIS TIME. PT CONTINUES A&O T/OUT SHIFT, RESP EVEN AND UNLABORED, SINUS RHYTHM/TACH ON MONITOR. MICROBIOLOGY QUALITY CONTROL TECHNICIAN PUMP CONTINUES, PT REPORTS PAIN BETTER CONTROLLED WITH PUMP. WILL CONTINUE TO MONITOR AND TREAT UNTIL CHANGE OF SHIFT.
--- NOTE | 2020-06-01 18:56 | NUR ---
ATTEMPTED TO REMOVE 2 CC AIR FROM TR BAND. BLEEDING OCCURRED. 2 CC AIR REPLACED. TOTAL OF 12 CC AIR REMAINS IN TR BAND.
--- NOTE | 2020-06-01 23:12 | NUR ---
TRANSFER TO PCU PT TRANSFERED TO PCU, BP 102/72. HR 97. O2 SATS >95% ON 1 LPM VIA NC. TR BAND IN PLACE AND FULLY DEFLATED. GROIN SITES ARE C/D/I, SCANT BLOOD, NO DISCOLORATION, SWELLING OR FIRMNESS. PT IS DOING WELL.
--- NOTE | 2020-06-02 05:09 | NUR ---
SHIFT SUMMARY RECEIVED REPORT FROM MAHENDRA BOYCE. PATIENT TRANSFERRED FROM ICU TO PCU @2300 . AGREE WITH ASSESSMENT. REASSESSED LLE FOR PULSE, MARKED PULSE FOUND WITH DOPPLER. LLE WARM AND PINK, PATIENT STATES NO FEELING. REMOVED TR BAND @0130 FROM RIGHT RADIAL SITE, CLEAR DRESSING AND SPLINT IN PLACE, DRIED BLOOD, NO BLEEDING SINCE TR BAND REMOVED, RIGHT HAND WARM, PINK, WITH GOOD CIRCULATION. RIGHT AND LEFT FEMORAL SITES UNCHANGED, NO BLEEDING. PATIENT USES URINAL. NPO SINCE MIDNIGHT. VERIFIED MACHINE OPERATOR ASSISTANT PUMP WITH MARY BOYCE. VSS, NO ACUTE CHANGES. 02 SATS >90% ON RA-1L VIA NC. CALL LIGHT IN REACH.
[2020-06-02 05:27] LABS: Hematocrit 22.7 % (37.0-53.0); Hemoglobin 7.1 g/dL (13.5-17.5); Mean Corpuscular HGB 24.4 pg (26.0-34.0); Mean Corpuscular HGB Conc 31.3 g/dL (31.5-36.5); Mean Corpuscular Volume 78 fL (80-100); NRBC ABSOLUTE 0.02 K/mm3 (0.00-0.02); NRBC Auto 0.1 /100 WBC (0.0-0.2); Platelet Count 316 K/mm3 (150-400); RDW Coefficient Variation 26.4 % (11.7-14.2); RDW Standard Deviation 74.4 fL (35.1-46.3); Red Blood Cell Count 2.91 M/mm3 (4.30-5.90); White Blood Cell Count 14.43 K/mm3 (4.00-11.30)
[2020-06-02 05:44] LABS: Anion Gap 9 mmol/L (6-16); Blood Urea Nitrogen 4 mg/dL (8-24); Bun/Creatinine Ratio 5.5 (12.0-20.0); CO2, Blood 26 mmol/L (21-32); Calcium, Blood 8.2 mg/dL (8.5-10.1); Chloride, Blood 100 mmol/L (98-108); Creatinine, Blood 0.73 mg/dL (0.60-1.20); Glomerular Filtration Rate >60 (60-); Glucose, Blood 100 mg/dL (70-99); Potassium, Blood 3.6 mmol/L (3.5-5.5); Sodium, Blood 135 mmol/L (136-145)
--- NOTE | 2020-06-02 18:19 | NUR ---
SHIFT SUMMARY NO ACUTE EVENTS THIS SHIFT, VSS. BILAT GROIN SITES AND R. RADIAL SITES SHOWED NO NEW DISCHARGE THIS SHIFT, ARMBOARD IN PLACE ON R. FOREARM. PATIENT ALERT AND ORIENTED. ON ROOM AIR, TOLERATING WELL. IV ABX CONTINUED. DRESSINGS IN PLACE ON LLE. TRANSITIONED FROM DILAUDID ADVISOR ADVOCATE ANGEL CO FOUNDER TO PO DILAUDID. DR. MCKINNEY CAME TO DISCUSS SITUATION REGARDING LLE WITH PATIENT AT BEDSIDE. DR. MCKINNEY EXPLAINED THAT TRANSFER FOR ADDITIONAL VASCULAR INTERVENTION WAS THE RECOMMENDATION AT THIS TIME, PATIENT STATED HE WOULD DISCUSS WITH HIS LATER THIS SHIFT. WHEN WAS AT BEDSIDE THEY COMMUNICATED TO THIS RN AGREEMENT TO MOVE FORWARD WITH TRANSFER FOR FURTHER VASCULAR SURGERY, DR. KIRAN, DR. MCKINNEY AND DR. SOLO NOTIFIED. DR. SOLO COMMUNICATED TO THIS RN HE WOULD BE INVOLVED WITH COORDINATING COBRA TRANSFER, DR. KIRAN NOTIFIED.
[2020-06-03 04:52] LABS: BASOPHILS ABSOLUTE AUTO 0.03 K/mm3 (0.00-0.23); BASOPHILS PERCENT AUTO 0 % (0-2); EOSINOPHILS ABSOLUTE AUTO 0.01 K/mm3 (0.00-0.68); EOSINOPHILS PERCENT AUTO 0 % (0-6); Hematocrit 22.8 % (37.0-53.0); Hemoglobin 7.1 g/dL (13.5-17.5); IMMATURE GRAN ABSOLUTE AUTO 0.15 K/mm3 (0.00-0.10); IMMATURE GRAN PERCENT AUTO 1 % (0-1); LYMPHOCYTES ABSOLUTE AUTO 0.82 K/mm3 (0.84-5.20); LYMPHOCYTES PERCENT AUTO 5 % (21-46); MONOCYTES ABSOLUTE AUTO 0.59 K/mm3 (0.16-1.47); MONOCYTES PERCENT AUTO 4 % (4-13); Mean Corpuscular HGB 24.4 pg (26.0-34.0); Mean Corpuscular HGB Conc 31.1 g/dL (31.5-36.5); Mean Corpuscular Volume 78 fL (80-100); Mean Platelet Volume 8.6 fL (9.1-12.4); NEUTROPHILS ABSOLUTE AUTO 14.57 K/mm3 (1.96-9.15); NEUTROPHILS PERCENT AUTO 90 % (41-73); Platelet Count 290 K/mm3 (150-400); RDW Standard Deviation 75.7 fL (35.1-46.3); Red Blood Cell Count 2.91 M/mm3 (4.30-5.90); White Blood Cell Count 16.17 K/mm3 (4.00-11.30)
[2020-06-03 05:15] LABS: Anion Gap 11 mmol/L (6-16); Blood Urea Nitrogen 5 mg/dL (8-24); Bun/Creatinine Ratio 7.2 (12.0-20.0); CO2, Blood 23 mmol/L (21-32); Calcium, Blood 8.3 mg/dL (8.5-10.1); Chloride, Blood 99 mmol/L (98-108); Glomerular Filtration Rate >60 (60-); Glucose, Blood 97 mg/dL (70-99); Potassium, Blood 3.4 mmol/L (3.5-5.5); Sodium, Blood 133 mmol/L (136-145)
--- NOTE | 2020-06-03 05:51 | NUR ---
SHIFT SUMMARY PT ALERT, ORIENTED X4. FLAT AFFECT, DID NOT ENGAGE IN CONVERSATION . SP02>92% ON RA. TELEMETRY READS SINUS TACH, HR 90'S-120'S. PT C/O 8 PAIN, MEDICATED PER EMAR. PT HAS MULTIPLE WOUND SITES, ALL DRESSINGS C/D/I. ABX INFUSED PER EMAR THIS SHIFT. PT USED URINAL AT BEDSIDE MULTIPLE TIMES. PT USES CALL LIGHT APPROPRIATLY. PT SLEPT MOST OF NIGHT. CALL LIGHTIN REACH. WILL GIVE REPORT TO ONCOMING NURSE.
--- NOTE | 2020-06-03 17:11 | NUR ---
SHIFT SUMMARY NO ACUTE EVENTS THIS SHIFT, VSS. PATIENT APPEARS WITHDRAWN THIS SHIFT, PATIENT IS REFUSING REPOSITIONING AND REFUSED BREAKFAST AND LUNCH TODAY. BLOOD SUGAR MAINTAINING IN 100S, NO INSULIN COVERAGE NEEDED. IV ABX CONTINUED. NO SIGNS OF DISCHARGE AT BILATERAL GROIN SITES, NO DISCHARGE AT R. RADIAL SITE, ARMBOARD IN PLACE. PATIENT AND SPOUSE ARE FRUSTRATED THAT THE COBRA TRANSFER HAS NOT YET OCCURED, THIS RN AND STEPHANIE RN ASSURED THEM THAT PROGRESS HAS BEEN MADE WITH AN ACCEPTING PHYSICIAN, AND THAT WE ARE WAITING ON GETTING A BED AT THE [facility]PT[facility] AT [facility] . PATIENT AND SPOUSE WERE PROVIDED EDUCATION THAT THE PATIENT'S LEFT LEG IS WARM WITH SENSATION AND WITH CAP REFILL AND THAT THOSE ARE POSITIVE SIGNS THAT NO ACUTE CHANGES ARE NOTED IN THE STATUS OF THE PERFUSION OF THE LLE, AND THAT CONTINUED MONITORING OF THE LLE IS BEING DONE BY NURSING STAFF. NO SIGNS OF DISCHARGE AT SURGICAL DRESSING OF RLE.
--- NOTE | 2020-06-04 05:56 | NUR ---
SHIFT SUMMARY PT A&OX4. PT ANSWERS QUESTIONS, FOLLOWS DIRECTIONS, BUT DOES NOT ENGAGE IN CONVERSATION, FLAT AFFECT. SP02>90% ON RA. TELEMETRY READS SINUS TACH, HR 100'S-130'S. BP SOFT. PT C/O OF 8/10 LEG PAIN, MEDICATED W/ DILAUDID PER EMAR. PT HAS DAYS OLD R RADIAL, AND BILAT GROIN SITES, C/D/I. PT USED URINAL AT BEDSIDE. PT REFUSED MOST Q2H REPOSITIONS, BUT DID LET STAFF REPOSITION AND FULL LINEN CHANGE AT MIDNIGHT. ABX INFUSED PER EMAR. CALL LIGHT IN REACH. WILL GIVE REPORT TO ONCOMING NURSE.
[2020-06-04 08:25] LABS: Hematocrit 23.6 % (37.0-53.0); Hemoglobin 7.3 g/dL (13.5-17.5)
[2020-06-04 08:38] LABS: Anion Gap 9 mmol/L (6-16); Blood Urea Nitrogen 6 mg/dL (8-24); Bun/Creatinine Ratio 7.6 (12.0-20.0); CO2, Blood 25 mmol/L (21-32); Calcium, Blood 8.1 mg/dL (8.5-10.1); Chloride, Blood 99 mmol/L (98-108); Creatinine, Blood 0.79 mg/dL (0.60-1.20); Glomerular Filtration Rate >60 (60-); Glucose, Blood 117 mg/dL (70-99); Potassium, Blood 3.4 mmol/L (3.5-5.5); Sodium, Blood 133 mmol/L (136-145)
--- NOTE | 2020-06-04 19:17 | NUR ---
PT SUMMARY: PT CONTINUES TO REFUSE CARE LIKE REPORSITIONING, BED BATH, CHANGING GOWNS AND LINES, NO MEAL INTAKE FOR THE SHIFT PT HAS JUST BEEN DRINKING ORANGE JUICE AND WATER. PT WAS EDUCATED THAT RIGHT LEG STUMP DRESSING NEEDS TO BE CHANGED AND OFFERED PAIN MEDICINE BEFORE CHANGING THE DRESSING, WAS REFUSED AT FIRST, PT FREAKED OUT IN THE MIDDLE OF DRESSING CHANGE DUE TO PAIN AND THIS TIME PT ACCEPTED PAIN MEDICINE, 4MG DILAUDID WAS GIVEN AND WAS EFFECTIVE. PT CONTINUES ON IV ABO, MICH OF RUE WAS DONE PT WAS POSITIVE FOR DVT, POWERGLIDE WAS PULLED PT MADE AWARE AND TO START XARELTO TONIGHT. PT STILL PLAN TO GO TO [facility] TOMORROW FOR VASCULAR PROCEDURE. VITALS HRR ST 110-115'S, BP SYSTOLIC 120'S, SATS ABOVE 95% ON RA, AFEBRILE. NO OTHER ISSUES ENCOUNTERED FOR REGINE SHIFT, REPORT GIVEN TO ONCOMING SHIFT
[2020-06-05 04:48] LABS: Hematocrit 22.1 % (37.0-53.0); Hemoglobin 6.8 g/dL (13.5-17.5); Mean Corpuscular HGB Conc 30.8 g/dL (31.5-36.5); Mean Corpuscular Volume 78 fL (80-100); Mean Platelet Volume 8.7 fL (9.1-12.4); Platelet Count 281 K/mm3 (150-400); RDW Coefficient Variation 26.2 % (11.7-14.2); RDW Standard Deviation 73.3 fL (35.1-46.3); Red Blood Cell Count 2.83 M/mm3 (4.30-5.90); White Blood Cell Count 13.79 K/mm3 (4.00-11.30)
[2020-06-05 05:12] LABS: Anion Gap 8 mmol/L (6-16); Blood Urea Nitrogen 5 mg/dL (8-24); Bun/Creatinine Ratio 6.5 (12.0-20.0); CO2, Blood 24 mmol/L (21-32); Calcium, Blood 8.1 mg/dL (8.5-10.1); Chloride, Blood 99 mmol/L (98-108); Creatinine, Blood 0.77 mg/dL (0.60-1.20); Glomerular Filtration Rate >60 (60-); Glucose, Blood 118 mg/dL (70-99); Potassium, Blood 3.6 mmol/L (3.5-5.5); Sodium, Blood 131 mmol/L (136-145)
--- NOTE | 2020-06-05 06:01 | NUR ---
SHIFT SUMMARY PT A&OX4. PT ANSWERS QUESTIONS, FOLLOWS DIRECTIONS, BUT DOES NOT ENGAGE IN CONVERSATION, WITHDRAWN. SP02>90% ON RA. TELEMETRY READS SINUS TACH, HR 100'S-140'S. PT C/O OF 8/10 LEG PAIN, MEDICATED W/ DILAUDID PER EMAR. PT USED URINAL AT BEDSIDE, INCONTINENT OF BLADDER X2 THIS SHIFT. FULL LINEN AND GOWN CHANGES X2. SHANNON CARE PERFORMED. PT REFUSED Q2H REPOSITIONS. DRESSING CHANGES TO L HEAL AND BILAT GROIN SITES (SOILED BY URINE). CALL LIGHT IN REACH. WILL GIVE REPORT TO ONCOMING NURSE.
[2020-06-05 16:59] LABS: Hematocrit 28.2 % (37.0-53.0)
--- NOTE | 2020-06-05 18:12 | NUR ---
PT ANA TRANSFERRED TO [facility] TODAY AT 1630. REPORT GIVEN TO RED BOYCE. PT RECEIVED 2PRBC FOR THE SHIFT, HGB POST TRANSFUSION WENT UP TO 9.0. PT WAS ALSO STARTED ON HEPARIN GTT AT 15U/KG/HR FOR DVT ON RUE. PT STILL REFUSED TO GET REPOSITIONED, REFUSED HIS MEALS. RIGHT STUMP BKA DRESSING REMAINED CDI. OFFERED PAIN MEDICIINE FOR THE SHIFT BUT REFUSED. NO OTHER ISSUES ENCOUNTERED FOR REGINE SHIFT AT BEDSIDE UNTIL PT WAS TRANSPORTED. PT TRANSPORTED WITH HEPARIN GTT INFUSING. ALL BELONGINGS SENT WITH PT.
== END 2020-06-05 16:46 | disposition short-term general hospital (02) | DRG 853 ==
LOC: ER 10:49 → ICUW 14:29 → PCU 14:29 → ERHOLD 14:29 → ICUW 15:13 → ER 05-31 07:30 → ICUW 05-31 15:59 → PCU 06-01 23:00
PROVIDERS: Emergency Medicine; Internal Medicine; Orthopaedic Surgery; ADMIT Internal Medicine
PROC: 0Y6H0Z1 Detachment at Right Lower Leg, High, Open Approach (ICD-10-PCS; principal; 2020-05-30 22:00)
PROC: 0DB98ZX Excision of Duodenum, Via Natural or Artificial Opening Endoscopic, Diagnostic (ICD-10-PCS; 2020-05-31)
PROC: B41D1ZZ Fluoroscopy of Aorta and Bilateral Lower Extremity Arteries using Low Osmolar Contrast (ICD-10-PCS; 2020-06-01)
DX: A41.9 Sepsis, unspecified organism (principal); A48.0 Gas gangrene; M72.6 Necrotizing fasciitis; D62 Acute posthemorrhagic anemia; E11.52 Type 2 diabetes mellitus with diabetic peripheral angiopathy with gangrene; K92.1 Melena; L03.115 Cellulitis of right lower limb; L97.829 Non-pressure chronic ulcer of other part of left lower leg with unspecified severity; Z20.822 Contact with and (suspected) exposure to COVID-19; E11.628 Type 2 diabetes mellitus with other skin complications; E11.622 Type 2 diabetes mellitus with other skin ulcer; E11.621 Type 2 diabetes mellitus with foot ulcer; L97.519 Non-pressure chronic ulcer of other part of right foot with unspecified severity; I70.248 Atherosclerosis of native arteries of left leg with ulceration of other part of lower leg; G35 Multiple sclerosis; I10 Essential (primary) hypertension; M35.3 Polymyalgia rheumatica; E11.42 Type 2 diabetes mellitus with diabetic polyneuropathy; E78.5 Hyperlipidemia, unspecified; F17.210 Nicotine dependence, cigarettes, uncomplicated; Z79.82 Long term (current) use of aspirin; Z79.4 Long term (current) use of insulin; Z79.899 Other long term (current) drug therapy
CPT/HCPCS: 0241U; 36140; 36415; 36430; 73600; 73620; 73700; 75716; 75774; 76937; 80048; 80053; 82272; 82947; 83605; 85014; 85018; 85025; 85027; 85610; 85730; 86140; 86850; 86900; 86901; 86923; 87040; 87070; 87075; 87077; 87185; 87186; 87205; 88305; 88307; 93005; 93010; 93971; 94760; 94762; 96365; 96367; 96375; 96376; 99285-25; A9270; C1751; C1760; C1769; C1887; C1894; C9113; J0295; J1100; J1170; J1644; J2250; J2370; J2405; J2543; J2704; J3010; J3480; J7030; J7040; J7050; J7120; P9016; Q9967

== ENCOUNTER 2020-08-10 08:00 | Day surgery (SDC) | payer MEDICARE, SELFPAY ==
[~2020-08-10 08:00] MED LIST changes: +Florastor250 MG PO; +NORCO 7.5-3251 EAC1 PO
== END 2020-08-10 23:59 | disposition home or self-care (01) ==
LOC: WOUND 08:00
DX: E11.621 Type 2 diabetes mellitus with foot ulcer (principal); L97.426 Non-pressure chronic ulcer of left heel and midfoot with bone involvement without evidence of necrosis; L89.624 Pressure ulcer of left heel, stage 4; I73.9 Peripheral vascular disease, unspecified; F17.210 Nicotine dependence, cigarettes, uncomplicated
CPT/HCPCS: 87071; 87075; 87076; 87077; 87185; 87186; 87205; A9270; G0463

== ENCOUNTER → 2020-08-14 | Outpatient (CLI) | payer MEDICARE, SELFPAY ==
[2020-08-14 15:42] LABS: Hematocrit 23.6 % (37.0-53.0); Hemoglobin 6.7 g/dL (13.5-17.5); Mean Corpuscular HGB 25.4 pg (26.0-34.0); Mean Corpuscular HGB Conc 28.4 g/dL (31.5-36.5); Mean Corpuscular Volume 89 fL (80-100); NRBC ABSOLUTE 0.02 K/mm3 (0.00-0.02); NRBC Auto 0.2 /100 WBC (0.0-0.2); Platelet Count 360 K/mm3 (150-400); RDW Coefficient Variation 19.6 % (11.7-14.2); RDW Standard Deviation 64.4 fL (35.1-46.3); Red Blood Cell Count 2.64 M/mm3 (4.30-5.90); White Blood Cell Count 11.27 K/mm3 (4.00-11.30)
[2020-08-14 15:50] LABS: C-REACTIVE PROTEIN, EXT RANGE 0.294 mg/dL (0.000-0.300)
[2020-08-14 15:53] LABS: Alanine Aminotransfer (ALT/SGP 24 U/L (12-78); Albumin, Blood 3.1 g/dL (3.4-5.0); Albumin/Globulin Ratio 0.9 (0.8-1.8); Alk Phos 97 U/L (50-136); Anion Gap 3 mmol/L (6-16); Aspartate Aminotrans (AST/SGOT 13 U/L (12-37); Bilirubin, Total 0.2 mg/dL (0.1-1.0); Blood Urea Nitrogen 27 mg/dL (8-24); Bun/Creatinine Ratio 39.1 (12.0-20.0); CO2, Blood 27 mmol/L (21-32); Calcium, Blood 9.1 mg/dL (8.5-10.1); Chloride, Blood 106 mmol/L (98-108); Creatinine, Blood 0.69 mg/dL (0.60-1.20); Globulin, Blood 3.3 g/dL (2.2-4.0); Glomerular Filtration Rate >60 (60-); Glucose, Blood 77 mg/dL (70-99); Potassium, Blood 4.5 mmol/L (3.5-5.5); Sodium, Blood 136 mmol/L (136-145); Total Protein, Blood 6.4 g/dL (6.4-8.2)
== END | disposition home or self-care (01) ==
LOC: LAB 13:10 → LAB SHORT 13:10
PROVIDERS: Surgery
DX: Z48.00 Encounter for change or removal of nonsurgical wound dressing (principal); L97.428 Non-pressure chronic ulcer of left heel and midfoot with other specified severity; I10 Essential (primary) hypertension; I73.9 Peripheral vascular disease, unspecified
CPT/HCPCS: 80053; 85027; 85651; 86140

== ENCOUNTER 2020-08-17 03:59 | Day surgery (SDC) | payer MEDICARE, SELFPAY | END 2020-08-17 23:35 | disposition home or self-care (01) | LOC: WOUND 03:59 | DX: E11.621 Type 2 diabetes mellitus with foot ulcer (principal); L97.426 Non-pressure chronic ulcer of left heel and midfoot with bone involvement without evidence of necrosis; L97.522 Non-pressure chronic ulcer of other part of left foot with fat layer exposed; L89.624 Pressure ulcer of left heel, stage 4; I73.9 Peripheral vascular disease, unspecified | CPT/HCPCS: 87071; 87075; 87077; 87186; 87205; A9270 ==

== ENCOUNTER 2020-08-31 03:52 | Day surgery (SDC) | payer MEDICARE, SELFPAY | END 2020-08-31 22:48 | disposition home or self-care (01) | LOC: WOUND 03:52 | DX: E11.621 Type 2 diabetes mellitus with foot ulcer (principal); L97.426 Non-pressure chronic ulcer of left heel and midfoot with bone involvement without evidence of necrosis; L89.624 Pressure ulcer of left heel, stage 4; I73.9 Peripheral vascular disease, unspecified | CPT/HCPCS: 88305; A9270 ==

== ENCOUNTER 2020-09-07 04:11 | Day surgery (SDC) | payer MEDICARE, SELFPAY | END 2020-09-07 23:14 | disposition home or self-care (01) | LOC: WOUND 04:11 | DX: E11.621 Type 2 diabetes mellitus with foot ulcer (principal); L97.509 Non-pressure chronic ulcer of other part of unspecified foot with unspecified severity; L89.624 Pressure ulcer of left heel, stage 4; I73.9 Peripheral vascular disease, unspecified | CPT/HCPCS: A9270 ==

== ENCOUNTER 2020-09-14 00:28 | Day surgery (SDC) | payer MEDICARE, OTHER | END 2020-09-14 22:47 | disposition home or self-care (01) | LOC: WOUND 00:28 | DX: E11.621 Type 2 diabetes mellitus with foot ulcer (principal); L97.426 Non-pressure chronic ulcer of left heel and midfoot with bone involvement without evidence of necrosis; E11.51 Type 2 diabetes mellitus with diabetic peripheral angiopathy without gangrene; Z79.4 Long term (current) use of insulin | CPT/HCPCS: A9270 ==

== ENCOUNTER 2020-09-28 01:42 | Day surgery (SDC) | payer MEDICARE, OTHER | END 2020-09-28 23:38 | disposition home or self-care (01) | LOC: WOUND 01:42 | DX: E11.621 Type 2 diabetes mellitus with foot ulcer (principal); L97.426 Non-pressure chronic ulcer of left heel and midfoot with bone involvement without evidence of necrosis; E11.51 Type 2 diabetes mellitus with diabetic peripheral angiopathy without gangrene; Z95.820 Peripheral vascular angioplasty status with implants and grafts; Z86.14 Personal history of Methicillin resistant Staphylococcus aureus infection | CPT/HCPCS: A9270 ==

== ENCOUNTER 2020-10-12 00:52 | Day surgery (SDC) | payer MEDICARE, OTHER | END 2020-10-12 22:44 | disposition home or self-care (01) | LOC: WOUND 00:52 | DX: E11.621 Type 2 diabetes mellitus with foot ulcer (principal); L97.425 Non-pressure chronic ulcer of left heel and midfoot with muscle involvement without evidence of necrosis; L89.624 Pressure ulcer of left heel, stage 4; I73.9 Peripheral vascular disease, unspecified | CPT/HCPCS: 87071; 87075; 87077; 87186; 87205; A9270 ==

== ENCOUNTER 2020-10-18 01:32 | Day surgery (SDC) | payer MEDICARE, OTHER | END 2020-10-18 22:45 | disposition home or self-care (01) | LOC: WOUND 01:32 | DX: E11.621 Type 2 diabetes mellitus with foot ulcer (principal); L97.426 Non-pressure chronic ulcer of left heel and midfoot with bone involvement without evidence of necrosis; L89.624 Pressure ulcer of left heel, stage 4; E11.51 Type 2 diabetes mellitus with diabetic peripheral angiopathy without gangrene | CPT/HCPCS: A9270 ==

== ENCOUNTER 2020-10-25 01:32 | Day surgery (SDC) | payer MEDICARE | END 2020-10-25 23:06 | disposition home or self-care (01) | LOC: WOUND 01:32 | DX: E11.621 Type 2 diabetes mellitus with foot ulcer (principal); L97.426 Non-pressure chronic ulcer of left heel and midfoot with bone involvement without evidence of necrosis; E11.51 Type 2 diabetes mellitus with diabetic peripheral angiopathy without gangrene | CPT/HCPCS: A9270 ==

== ENCOUNTER 2020-11-01 01:39 | Day surgery (SDC) | payer MEDICARE | END 2020-11-01 22:41 | disposition home or self-care (01) | LOC: WOUND 01:39 | DX: E11.621 Type 2 diabetes mellitus with foot ulcer (principal); L97.426 Non-pressure chronic ulcer of left heel and midfoot with bone involvement without evidence of necrosis; E11.51 Type 2 diabetes mellitus with diabetic peripheral angiopathy without gangrene | CPT/HCPCS: A9270 ==

== ENCOUNTER 2020-11-08 02:46 | Day surgery (SDC) | payer MEDICARE | END 2020-11-08 23:13 | disposition home or self-care (01) | LOC: WOUND 02:46 | DX: E11.621 Type 2 diabetes mellitus with foot ulcer (principal); L97.426 Non-pressure chronic ulcer of left heel and midfoot with bone involvement without evidence of necrosis; E11.51 Type 2 diabetes mellitus with diabetic peripheral angiopathy without gangrene | CPT/HCPCS: A9270 ==

== ENCOUNTER 2020-11-15 00:34 | Day surgery (SDC) | payer MEDICARE | END 2020-11-15 23:14 | disposition home or self-care (01) | LOC: WOUND 00:34 | DX: E11.621 Type 2 diabetes mellitus with foot ulcer (principal); L97.526 Non-pressure chronic ulcer of other part of left foot with bone involvement without evidence of necrosis; L89.624 Pressure ulcer of left heel, stage 4; E11.51 Type 2 diabetes mellitus with diabetic peripheral angiopathy without gangrene | CPT/HCPCS: 36415; 80053; 85025; 85651; 86140; A9270 ==

== ENCOUNTER 2020-11-22 01:19 | Day surgery (SDC) | payer MEDICARE | END 2020-11-22 23:03 | disposition home or self-care (01) | LOC: WOUND 01:19 | DX: E11.621 Type 2 diabetes mellitus with foot ulcer (principal); L97.426 Non-pressure chronic ulcer of left heel and midfoot with bone involvement without evidence of necrosis; L89.624 Pressure ulcer of left heel, stage 4; E11.51 Type 2 diabetes mellitus with diabetic peripheral angiopathy without gangrene | CPT/HCPCS: A9270 ==

== ENCOUNTER 2020-11-29 02:24 | Day surgery (SDC) | payer MEDICARE | END 2020-11-29 23:48 | disposition home or self-care (01) | LOC: WOUND 02:24 | DX: E11.621 Type 2 diabetes mellitus with foot ulcer (principal); L97.509 Non-pressure chronic ulcer of other part of unspecified foot with unspecified severity; L89.624 Pressure ulcer of left heel, stage 4; E11.51 Type 2 diabetes mellitus with diabetic peripheral angiopathy without gangrene | CPT/HCPCS: A9270 ==

== ENCOUNTER 2020-12-11 02:50 | Day surgery (SDC) | payer MEDICARE | END 2020-12-11 22:57 | disposition home or self-care (01) | LOC: WOUND 02:50 | DX: E11.621 Type 2 diabetes mellitus with foot ulcer (principal); L97.426 Non-pressure chronic ulcer of left heel and midfoot with bone involvement without evidence of necrosis; L89.624 Pressure ulcer of left heel, stage 4; E11.51 Type 2 diabetes mellitus with diabetic peripheral angiopathy without gangrene | CPT/HCPCS: A9270 ==

== ENCOUNTER 2020-12-20 02:39 | Day surgery (SDC) | payer MEDICARE | END 2020-12-20 22:53 | disposition home or self-care (01) | LOC: WOUND 02:39 | DX: E11.621 Type 2 diabetes mellitus with foot ulcer (principal); L97.422 Non-pressure chronic ulcer of left heel and midfoot with fat layer exposed; L89.624 Pressure ulcer of left heel, stage 4; E11.51 Type 2 diabetes mellitus with diabetic peripheral angiopathy without gangrene | CPT/HCPCS: A9270 ==

== ENCOUNTER 2020-12-27 02:06 | Day surgery (SDC) | payer MEDICARE | END 2020-12-27 23:04 | disposition home or self-care (01) | LOC: WOUND 02:06 | DX: E11.621 Type 2 diabetes mellitus with foot ulcer (principal); L97.424 Non-pressure chronic ulcer of left heel and midfoot with necrosis of bone; L89.624 Pressure ulcer of left heel, stage 4; E11.51 Type 2 diabetes mellitus with diabetic peripheral angiopathy without gangrene | CPT/HCPCS: A9270 ==

== ENCOUNTER 2021-01-10 04:44 | Day surgery (SDC) | payer MEDICARE | END 2021-01-10 23:00 | disposition home or self-care (01) | LOC: WOUND 04:44 | DX: E11.621 Type 2 diabetes mellitus with foot ulcer (principal); L97.426 Non-pressure chronic ulcer of left heel and midfoot with bone involvement without evidence of necrosis; L89.624 Pressure ulcer of left heel, stage 4; E11.51 Type 2 diabetes mellitus with diabetic peripheral angiopathy without gangrene | CPT/HCPCS: A9270 ==

== ENCOUNTER 2021-01-24 02:37 | Day surgery (SDC) | payer MEDICARE | END 2021-01-24 12:00 | disposition home or self-care (01) | LOC: WOUND 02:37 | DX: E11.621 Type 2 diabetes mellitus with foot ulcer (principal); L97.425 Non-pressure chronic ulcer of left heel and midfoot with muscle involvement without evidence of necrosis; L89.624 Pressure ulcer of left heel, stage 4; E11.51 Type 2 diabetes mellitus with diabetic peripheral angiopathy without gangrene | CPT/HCPCS: A9270 ==

== ENCOUNTER 2021-01-31 04:52 | Day surgery (SDC) | payer MEDICARE | END 2021-01-31 22:59 | disposition home or self-care (01) | LOC: WOUND 04:52 | DX: E11.621 Type 2 diabetes mellitus with foot ulcer (principal); L97.425 Non-pressure chronic ulcer of left heel and midfoot with muscle involvement without evidence of necrosis; L89.624 Pressure ulcer of left heel, stage 4; E11.51 Type 2 diabetes mellitus with diabetic peripheral angiopathy without gangrene | CPT/HCPCS: A9270 ==

== ENCOUNTER 2021-02-03 14:34 | Inpatient (IN) | payer MEDICARE ==
[~2021-02-03] VITALS: Ht 182.9 cm; Wt 97.4 kg
[2021-02-03] MEDS ORDERED: ASPI81CH PO (14:55)
[2021-02-03 15:23] LABS: Hematocrit 25.4 % (37.0-53.0); Hemoglobin 7.2 g/dL (13.5-17.5); Mean Corpuscular HGB 18.6 pg (26.0-34.0); Mean Corpuscular HGB Conc 28.3 g/dL (31.5-36.5); Mean Corpuscular Volume 66 fL (80-100); Mean Platelet Volume 9.5 fL (9.1-12.4); NRBC ABSOLUTE 0.04 K/mm3 (0.00-0.02); NRBC Auto 0.2 /100 WBC (0.0-0.2); Platelet Count 271 K/mm3 (150-400); RDW Coefficient Variation 22.5 % (11.7-14.2); RDW Standard Deviation 52.1 fL (35.1-46.3); Red Blood Cell Count 3.88 M/mm3 (4.30-5.90); White Blood Cell Count 18.87 K/mm3 (4.00-11.30)
[2021-02-03 15:41] LABS: BAND PERCENT MAN 3 % (0-8); BASOPHILS PERCENT MAN 0 % (0-2); EOSINOPHILS PERCENT MAN 0 % (0-6); LYMPHOCYTES % ATYPICAL MANUAL 1 % (0-0); LYMPHOCYTES ABSOLUTE MAN 0.75 K/mm3 (0.84-5.20); LYMPHOCYTES PERCENT MAN 3 % (21-46); MONOCYTES ABSOLUTE MAN 0.37 K/mm3 (0.16-1.47); MONOCYTES PERCENT MAN 2 % (4-13); NEUTROPHILS ABSOLUTE MAN 17.73 K/mm3 (1.96-9.15); SEG NEUTROPHILS PERCENT MAN 91 % (41-73); TOTAL CELLS COUNTED 100
[2021-02-03 15:42] LABS: Alanine Aminotransfer (ALT/SGP 47 U/L (12-78); Albumin, Blood 2.5 g/dL (3.4-5.0); Albumin/Globulin Ratio 0.7 (0.8-1.8); Alk Phos 69 U/L (50-136); Anion Gap 10 mmol/L (6-16); Aspartate Aminotrans (AST/SGOT 77 U/L (12-37); Bilirubin, Total 0.9 mg/dL (0.1-1.0); Blood Urea Nitrogen 21 mg/dL (8-24); Bun/Creatinine Ratio 21.3 (12.0-20.0); CO2, Blood 21 mmol/L (21-32); Calcium, Blood 8.4 mg/dL (8.5-10.1); Chloride, Blood 98 mmol/L (98-108); Creatinine, Blood 0.99 mg/dL (0.60-1.20); Globulin, Blood 3.4 g/dL (2.2-4.0); Glomerular Filtration Rate >60 (60-); Glucose, Blood 144 mg/dL (70-99); Potassium, Blood 3.7 mmol/L (3.5-5.5); Sodium, Blood 129 mmol/L (136-145); Total Protein, Blood 5.9 g/dL (6.4-8.2)
[2021-02-03 16:10] LABS: Magnesium, Blood 1.5 mg/dL (1.6-2.4)
[2021-02-03 16:13] LABS: Thyroid Stimulating Hormone 2.3 uIU/mL (0.360-4.800)
[2021-02-03 16:13] LABS: Base Excess Venous -4.5 mmol/L; Bicarbonate Venous 20.8 mmol/L (24.0-30.0); PCO2 Venous 34.6 mmHg (38-42); PO2 Venous 46.3 mmHg (38-42); pH Blood Venous 7.38 (7.34-7.37)
[2021-02-03 16:43] LABS: International Normalized Ratio 1.21; Prothrombin Time Results 12.5 Sec (9.7-11.5)
[2021-02-03 16:58] LABS: SARS-Cov-2 (COVID-19) PCR, MMC NEGATIVE (NEGATIVE)
[2021-02-03 18:19] LABS: Source, Urine Catheter
[2021-02-03 18:27] LABS: Appearance, Urine Clear (Clear); Bilirubin, Urine Neg (Neg); Blood, Urine 5+ (Neg); Color, Urine Yellow (P-Yellow); Glucose Qualitative, Urine Neg (Neg); Ketones, Urine 1+ (Neg); Leukocyte Esterase, Urine 1+ (Neg); Nitrite, Urine Neg (Neg); Protein, Urine 3+ (Neg); Specific Gravity, Urine 1.015 (1.003-1.022); Urobilinogen, Urine NORM (Normal)
[2021-02-03 18:39] LABS: Granular Casts 0-2 /lpf (0); Transitional Epithelial Cells Rare /hpf (0-Rare)
[2021-02-03 18:40] LABS: Bacteria Mod /hpf; Squamous Epithelial Cells Few /hpf (Few); U Cannabinoids Screen DETECTED
[2021-02-03 18:41] LABS: U Amphetamine Screen Not Detected; U Barbituate Screen Not Detected; U Benzodiazapine Screen Not Detected; U Buprenorphine Screen Not Detected; U Cocaine Screen Not Detected; U Methadone Screen Not Detected; U Methamphetamine Screen Not Detected; U Opiates Screen Not Detected; U Oxycodone Screen Not Detected; U Phencyclidine Screen Not Detected; U Propoxyphene Screen Not Detected
--- NOTE | 2021-02-03 21:20 | NUR ---
ASSUME CARE: RECEIVED REPORT FROM CARLI RAE. PT ARRIVED AND MOVED TO ICU BED. OPENS EYES AND TRACKS. A&O TO SELF ONLY. WILL SOMETIMES ANSWER YES OR NO QUESTIONS BUT IS SLOW TO RESPOND. DENIES PAIN. HR IN 110'S AND SBP IN 110'S. SATING 95% ON ROOM AIR. GLASER IN PLACE DRAINING CLEAR YELLOW URINE TO GRAVITY. MOVES EXTREMITIES AND IS FIGITY. AFEBRILE. CURRENTLY NPO. HE HAS A R BKA AND HIS LEFT LEG IS RED AND SWOLLEN. SEE SHIFT ASSESSMENT FOR DETAILS.
[2021-02-04 04:10] LABS: BASOPHILS ABSOLUTE AUTO 0.02 K/mm3 (0.00-0.23); BASOPHILS PERCENT AUTO 0 % (0-2); Hemoglobin 6.5 g/dL (13.5-17.5); LYMPHOCYTES ABSOLUTE AUTO 0.26 K/mm3 (0.84-5.20); LYMPHOCYTES PERCENT AUTO 1 % (21-46); MONOCYTES PERCENT AUTO 2 % (4-13); Mean Corpuscular HGB 18.5 pg (26.0-34.0); Mean Corpuscular HGB Conc 28.3 g/dL (31.5-36.5); Mean Corpuscular Volume 65 fL (80-100); Mean Platelet Volume 9.4 fL (9.1-12.4); Platelet Count 253 K/mm3 (150-400); RDW Coefficient Variation 22.5 % (11.7-14.2); RDW Standard Deviation 52.7 fL (35.1-46.3); Red Blood Cell Count 3.52 M/mm3 (4.30-5.90); White Blood Cell Count 18.26 K/mm3 (4.00-11.30)
[2021-02-04 04:11] LABS: EOSINOPHILS PERCENT AUTO 0 % (0-6); IMMATURE GRAN ABSOLUTE AUTO 0.17 K/mm3 (0.00-0.10); IMMATURE GRAN PERCENT AUTO 1 % (0-1); NEUTROPHILS ABSOLUTE AUTO 17.41 K/mm3 (1.96-9.15); NEUTROPHILS PERCENT AUTO 95 % (41-73)
--- NOTE | 2021-02-04 04:33 | NUR ---
UPDATE: BLOOD CONSENT CALLED AND SPOKE WITH PT'S AND GOT CONSENT FOR BLOOD PRODUCTS WITH ANOTHER RN A WITNESS.
[2021-02-04 04:38] LABS: Alanine Aminotransfer (ALT/SGP 50 U/L (12-78); Albumin, Blood 2.3 g/dL (3.4-5.0); Albumin/Globulin Ratio 0.7 (0.8-1.8); Alk Phos 72 U/L (50-136); Anion Gap 11 mmol/L (6-16); Aspartate Aminotrans (AST/SGOT 90 U/L (12-37); Bilirubin, Total 0.7 mg/dL (0.1-1.0); Blood Urea Nitrogen 23 mg/dL (8-24); Bun/Creatinine Ratio 23.1 (12.0-20.0); CO2, Blood 19 mmol/L (21-32); Calcium, Blood 8.3 mg/dL (8.5-10.1); Chloride, Blood 100 mmol/L (98-108); Globulin, Blood 3.5 g/dL (2.2-4.0); Glomerular Filtration Rate >60 (60-); Glucose, Blood 199 mg/dL (70-99); Sodium, Blood 130 mmol/L (136-145); Total Protein, Blood 5.8 g/dL (6.4-8.2)
--- NOTE | 2021-02-04 04:58 | NUR ---
UPDATE: [facility]H SPOKE WITH DR. VALLE IN REGARDS TO HEMOGLOBIN OF 6.5. HE ORDERED 1 UNIT OF PRBC'S.
--- NOTE | 2021-02-04 06:25 | NUR ---
SHIFT SUMMARY: PT LYING IN BED WITH EYES CLOSED APPEARING TO REST COMFORTABLY IN SWB RESTRAINTS. HE IS ALERT TO SELF, PLACE, AND FAMILY BUT ONLY ANSWERS YES OR NO QUESTIONS. HE DENIES PAIN AND IS AFEBRILE. ON ROOM AIR HE IS SATING >95%. SBP HAS BEEN IN THE 100-110'S. GLASER REMAINS IN PLACE DRAINING CLEAR YELLOW URINE TO GRAVITY. HE IS NPO AND DID NOT HAVE A BM THIS SHIFT. PHOTOS OF THE LEFT HEEL ULCER AND LEFT WINTERS ABRAISION WERE DOCUMENTED. HEPARIN INFUSING AT 17U/KG/HR AND NS AT 100ML/HR. PENDING 1 UNIT PRBC'S FOR HEMOGLOBIN OF 6.5. 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 WILL REPORT TO ONCOMING RN WHEN AVAILABLE.
[2021-02-04 13:18] LABS: BASOPHILS ABSOLUTE AUTO 0.02 K/mm3 (0.00-0.23); BASOPHILS PERCENT AUTO 0 % (0-2); EOSINOPHILS PERCENT AUTO 0 % (0-6); Hematocrit 23.7 % (37.0-53.0); Hemoglobin 6.9 g/dL (13.5-17.5); IMMATURE GRAN ABSOLUTE AUTO 0.11 K/mm3 (0.00-0.10); IMMATURE GRAN PERCENT AUTO 1 % (0-1); LYMPHOCYTES ABSOLUTE AUTO 0.18 K/mm3 (0.84-5.20); LYMPHOCYTES PERCENT AUTO 1 % (21-46); MONOCYTES ABSOLUTE AUTO 0.31 K/mm3 (0.16-1.47); MONOCYTES PERCENT AUTO 2 % (4-13); Mean Corpuscular HGB 19.6 pg (26.0-34.0); Mean Corpuscular HGB Conc 29.1 g/dL (31.5-36.5); Mean Corpuscular Volume 67 fL (80-100); Mean Platelet Volume 9.6 fL (9.1-12.4); NEUTROPHILS ABSOLUTE AUTO 16.37 K/mm3 (1.96-9.15); NEUTROPHILS PERCENT AUTO 96 % (41-73); NRBC ABSOLUTE 0.02 K/mm3 (0.00-0.02); NRBC Auto 0.1 /100 WBC (0.0-0.2); Platelet Count 237 K/mm3 (150-400); RDW Coefficient Variation 23.4 % (11.7-14.2); RDW Standard Deviation 56.2 fL (35.1-46.3); Red Blood Cell Count 3.52 M/mm3 (4.30-5.90); White Blood Cell Count 16.99 K/mm3 (4.00-11.30)
--- NOTE | 2021-02-04 17:54 | NUR ---
0800 Pt recieved on bed AAOX2, on RA tolerating well. Pt asssessment done; Pt has Left arm Midline and PIV infusing Heparin. 1 unit of blood given. pt tolerated well. Pt has R BKA eith left heel wound; dressing changed. Dr. Wood seen and assessed pt; orders recieved. 1400 Family updated om status of pt and plan of care. 1600 Pt reassessed, pt afebrile, VSS and in no acute distress. Will monitor pt closely.
[2021-02-04 18:58] LABS: Percent Saturation 2.6 % (20.0-50.0)
--- NOTE | 2021-02-04 19:00 | NUR ---
ASSUME CARE: PT LYING IN BED WITH EYES CLOSED BUT IS EASILY AROUSABLE TO SOUND. HE IS ALERT TO SELF, PLACE, AND FAMILY BUT DOES NOT REMEMBER THE MONTH OR WHY HE IS HERE. DENIES PAIN AND HAD A TEMP OF 99.7 TEMPORMALLY. HR AND BP WNL AND SATING >95% ON RA. HEPARIN INFUSING AT 16U/KG/HR. HE IS TO REMAIN NPO EXCEPT FOR MEDS OVERNIGHT AND WILL REASSESS IN THE MORNING. RIGHT BKA NOTED AND LLE IS RED, SWOLLEN, AND WARM TO TOUCH. HIS LEFT FOOT IS WRAPPED IN AN DOMENICO WRAP W/ HEEL PROTECTOR IN PLACE FOR A DECUB ULCER. SEE SHIFT ASSESSMENT FOR DETAILS.
[2021-02-04 20:36] LABS: Hematocrit 21.4 % (37.0-53.0); Hemoglobin 6.4 g/dL (13.5-17.5); Mean Corpuscular HGB 19.8 pg (26.0-34.0); Mean Corpuscular HGB Conc 29.9 g/dL (31.5-36.5); Mean Corpuscular Volume 66 fL (80-100); Mean Platelet Volume 9.7 fL (9.1-12.4); NRBC ABSOLUTE 0.03 K/mm3 (0.00-0.02); NRBC Auto 0.2 /100 WBC (0.0-0.2); Platelet Count 234 K/mm3 (150-400); RDW Coefficient Variation 23.2 % (11.7-14.2); RDW Standard Deviation 54.4 fL (35.1-46.3); Red Blood Cell Count 3.23 M/mm3 (4.30-5.90); White Blood Cell Count 15.33 K/mm3 (4.00-11.30)
[2021-02-04 21:03] LABS: Vancomycin, Trough 14.3 ug/mL (5.0-10.0)
--- NOTE | 2021-02-04 21:18 | NUR ---
UPDATE: H&H PT'S HGB IS 6.[address] VALLE WHO ORDERED 1 UNIT PRBC AND A REPEAT H&H AN HOUR AFTER THAT.
--- NOTE | 2021-02-04 21:33 | NUR ---
UPDATE: FAMILY UPDATED PATIENT'S , SERA, IN REGARDS TO STATUS AND INFORMED HER THAT HE WILL BE RECEIVING ANOTHER UNIT OF PRBCS. ANSWERED QUESTIONS AND SHE HAS NO OTHER CONCERNS AT THIS TIME.
[2021-02-05 01:29] LABS: Hematocrit 22.1 % (37.0-53.0); Hemoglobin 6.8 g/dL (13.5-17.5)
[2021-02-05 03:41] LABS: BASOPHILS ABSOLUTE AUTO 0.01 K/mm3 (0.00-0.23); BASOPHILS PERCENT AUTO 0 % (0-2); EOSINOPHILS PERCENT AUTO 0 % (0-6); Hematocrit 22.5 % (37.0-53.0); Hemoglobin 6.8 g/dL (13.5-17.5); IMMATURE GRAN PERCENT AUTO 1 % (0-1); LYMPHOCYTES ABSOLUTE AUTO 0.21 K/mm3 (0.84-5.20); LYMPHOCYTES PERCENT AUTO 2 % (21-46); MONOCYTES ABSOLUTE AUTO 0.35 K/mm3 (0.16-1.47); MONOCYTES PERCENT AUTO 2 % (4-13); Mean Corpuscular HGB 20.7 pg (26.0-34.0); Mean Corpuscular HGB Conc 30.2 g/dL (31.5-36.5); Mean Corpuscular Volume 69 fL (80-100); Mean Platelet Volume 10.2 fL (9.1-12.4); NEUTROPHILS ABSOLUTE AUTO 13.76 K/mm3 (1.96-9.15); NEUTROPHILS PERCENT AUTO 95 % (41-73); NRBC ABSOLUTE 0.03 K/mm3 (0.00-0.02); NRBC Auto 0.2 /100 WBC (0.0-0.2); Platelet Count 218 K/mm3 (150-400); RDW Coefficient Variation 24.3 % (11.7-14.2); RDW Standard Deviation 60.6 fL (35.1-46.3); Red Blood Cell Count 3.28 M/mm3 (4.30-5.90); White Blood Cell Count 14.43 K/mm3 (4.00-11.30)
[2021-02-05 03:57] LABS: Anion Gap 9 mmol/L (6-16); Blood Urea Nitrogen 27 mg/dL (8-24); Bun/Creatinine Ratio 35.2 (12.0-20.0); CO2, Blood 21 mmol/L (21-32); Calcium, Blood 8.3 mg/dL (8.5-10.1); Chloride, Blood 103 mmol/L (98-108); Creatinine, Blood 0.77 mg/dL (0.60-1.20); Glomerular Filtration Rate >60 (60-); Glucose, Blood 187 mg/dL (70-99); Potassium, Blood 3.6 mmol/L (3.5-5.5); Sodium, Blood 133 mmol/L (136-145)
--- NOTE | 2021-02-05 05:10 | NUR ---
UPDATE: H&H REPEAT H&H IS 6.8 AND MORNING LABS ALSO CAME BACK AT 6.8. PT ALSO NOW HAS BLOOD IN HIS URINE. SPOKE WITH DR. IZQUIERDO WHO ORDERED 1 UNIT PRBC'S AND STATES TO WATCH THE HEMATURIA.
--- NOTE | 2021-02-05 06:17 | NUR ---
SHIFT SUMMARY: PT LYING IN BED W/ EYES CLOSED. HE IS ALERT TO SELF, FAMILY, AND SURROUNDINGS BUT IS FORGETFUL TO WHY HE IS HERE AND FREQUENTLY REQUESTS TO GO HOME. CURRENTLY RECEIVING 1 UNIT PRBCS FOR A TOTAL OF 2 UNITS THIS SHIFT FOR A HGB OF 6.8. NO OBVIOUS SIGNS OF BLEEDING EXCEPT FOR NEW HEMATURIA, WHICH WE ARE WATCHING FOR NOW PER DR. IZQUIERDO. HEPARIN IS STILL INFUSING AT 16U/KG/HR. HE IS CURRENTLY SATING 93% ON ROOM AIR. GLASER REMAINS IN PLACE AND IS DRAINING RED URINE TO GRAVITY. HE HAS NO COMPLAINTS OF PAIN AND TMAX FOR THE SHIFT WAS 99.0 TEMPORALLY. NO BM THIS SHIFT. SKIN IS WARM AND DRY WITH ALL DRESSINGS CLEAN AND INTACT. WILL REPORT TO ONCOMING RN WHEN AVAILABLE.
[2021-02-05 10:40] LABS: Hematocrit 23.3 % (37.0-53.0); Hemoglobin 7.3 g/dL (13.5-17.5)
--- NOTE | 2021-02-05 13:24 | NUR ---
Pt recieved on bed AAOX3 on room air tolerating well. Pt denies paiin, VSS, afebrile and able to move upper extremities. Pt assessment done, pt has L leg cellultis with Left foot wound. 1 PRBC's infusing infusing, pt tolerating well. 1100 Dr. Jack seen and assessed pt; Orders recieived. notified of hematuria. Pt remains on Heparin, PRBC completed. Will monitor pt closely.
--- NOTE | 2021-02-05 14:28 | NUR ---
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 BOTH PARTIES ARE INSISTING TO LEAVE AMA. DR. TELLES MADE AWARE. SHE SPOKE WITH PT AND HE AGREES TO BE DISCHARGED THIS AFTERNOON AFTER BEING GIVEN FIRST DOSE OF ELIQUIS. PT AND SPOUSE AGREEE TO ALLOW FOR 1 HOUR FOR DISCHARGE PREPARATIONS.
--- NOTE | 2021-02-05 17:35 | NUR ---
1600 Pt had large black, melana BMs. Dr. Monique notifed. Pt spouse @ bedside. Renal U/S completed and pericare done. Pt insisted that he wants to leave AMA. Dr. Monique reassesed pt and spoke to pt regarding AMA; that it will be best for him to stay in the hospital and complete his treatment and get properly discharged. Pt continue to refused care and shouts he can take of himself to let him leave. buncher hand, Maribell Santo and I also explained the risks of leaving AMA, but he continue to demand to leave. 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 Pt has Left leg cellulitis and left wound; dressing changed. Pt is AAOX4, comprehends and understand the risks of leaving AMA. Pt left AMA alongside spouse; Dr. Monique notified.
== END 2021-02-05 16:30 | disposition left against medical advice (07) | DRG 871 ==
LOC: ER 14:34 → ERHOLD 19:27 → ICUW 19:27
PROVIDERS: Emergency Medicine; Family Medicine; Hospitalist; Internal Medicine; Student in an Organized Health Care Education/Training Program; ADMIT Internal Medicine
PROC: 30233N1 Transfusion of Nonautologous Red Blood Cells into Peripheral Vein, Percutaneous Approach (ICD-10-PCS; principal; 2021-02-04)
DX: A41.9 Sepsis, unspecified organism (principal); G93.41 Metabolic encephalopathy; L03.116 Cellulitis of left lower limb; I82.4Z2 Acute embolism and thrombosis of unspecified deep veins of left distal lower extremity; Z20.822 Contact with and (suspected) exposure to COVID-19; Z66 Do not resuscitate; E11.42 Type 2 diabetes mellitus with diabetic polyneuropathy; R65.20 Severe sepsis without septic shock; E11.51 Type 2 diabetes mellitus with diabetic peripheral angiopathy without gangrene; M35.3 Polymyalgia rheumatica; G35 Multiple sclerosis; R31.9 Hematuria, unspecified; I10 Essential (primary) hypertension; F17.210 Nicotine dependence, cigarettes, uncomplicated; E78.5 Hyperlipidemia, unspecified; Z78.1 Physical restraint status; Z79.84 Long term (current) use of oral hypoglycemic drugs; Z79.82 Long term (current) use of aspirin; Z79.899 Other long term (current) drug therapy; Z89.611 Acquired absence of right leg above knee
CPT/HCPCS: 36415; 36430; 51702; 70450; 71045; 71260; 73701; 74177; 76770; 80048; 80053; 80202; 81001; 82140; 82607; 82728; 82746; 82803; 82947; 83540; 83550; 83605; 83735; 83880; 84443; 85014; 85018; 85025; 85027; 85520; 85610; 86850; 86900; 86901; 86923; 87040; 87086; 93005; 93010; 93971; 96372; 96374; 96375; 99285-25; A9270; C1751; J1644; J2405; J2543; J2930; J3370; J7030; J7050; P9016; Q9967; U0004

== ENCOUNTER 2021-02-12 04:17 | Day surgery (SDC) | payer MEDICARE ==
[~2021-02-12 04:17] MED LIST changes: +ASPI81CH PO
== END 2021-02-12 23:06 | disposition home or self-care (01) ==
LOC: WOUND 04:17
DX: E11.621 Type 2 diabetes mellitus with foot ulcer (principal); L97.426 Non-pressure chronic ulcer of left heel and midfoot with bone involvement without evidence of necrosis; L97.822 Non-pressure chronic ulcer of other part of left lower leg with fat layer exposed; L89.624 Pressure ulcer of left heel, stage 4; E11.51 Type 2 diabetes mellitus with diabetic peripheral angiopathy without gangrene
CPT/HCPCS: A9270; G0463